=== PATIENT | male | born 1960 | race African-American/Black ===

== ENCOUNTER 2022-07-04 21:15 | Emergency (ER) | payer OTHER, SELFPAY ==
[2022-07-04 21:33] LABS: Glucose Point of Care 134 mg/dl (65-105)
[2022-07-04 21:38] VITALS: BP 152/109; PULSE 50; RESP 18; TEMP 36.4; O2SAT 97
[2022-07-04 22:07] LABS: Basophils Percent Auto 0.5 % (0.2-1.2); Eosinophils Absolute Auto 0.1 K/mm3 (0-0.3); Eosinophils Percent Auto 0.6 % (0-4.4); Hematocrit 24.2 % (42.0-52.0); Immature Granulocyte Absolute 0.02 K/mm3 (0.00-0.031); Immature Granulocyte Percent A 0.2 % (0-0.5); Lymphocytes Absolute Auto 3.68 K/mm3 (0.9-3.2); Lymphocytes Percent Auto 45.1 % (18.3-44.2); Mean Corpuscular HGB Conc 33.1 g/dl (32-36); Mean Corpuscular Hemoglobin 28.5 pg (26-34); Mean Corpuscular Volume 86.1 fl (80-100); Monocytes Absolute Auto 0.9 K/mm3 (0.1-0.6); Monocytes Percent Auto 11.3 % (2.6-8.5); Neutrophils Absolute Auto 3.5 K/mm3 (1.3-6.7); Neutrophils Percent Auto 42.3 % (45.5-73.1); Platelet Count Result 265 k/mm3 (150-375); Red Blood Count 2.81 M/mm3 (4.6-6.20); Red Cell Distribution Width 18.5 % (11.5-14.5); White Blood Count 8.2 K/mm3 (4.5-10.0)
[2022-07-04 22:21] LABS: Alanine Aminotransferase 20 U/L (6-50); Albumin Level 2.8 g/dL (3.5-5.1); Alkaline Phosphatase 467 U/L (38-126); Anion Gap 11 mmol/L (8-16); Aspartate Amino Transferase 51 U/L (17-59); Bilirubin,Total 1.6 mg/dL (0.2-1.3); Blood Urea Nitrogen 50 mg/dL (9-20); Calcium 7.5 mg/dL (8.4-10.2); Carbon Dioxide 15 mmol/L (22-30); Chloride 107 mmol/L (98-107); Estimated CRCL calculation 20 ml/min; Estimated Glomerular Filt Rate 28; Glucose 155 mg/dL (65-110); Potassium 5.7 mmol/L (3.4-5.0); Sodium 133 mmol/L (137-145)
--- NOTE | 2022-07-04 23:56 | ED.GENADULT ---
HPI - General Adult General Chief complaint: Unspecified Stated complaint: AMS/LOW BG/NARCOTIC OD Time Seen by Provider: 07/04/22 21:23 History of Present Illness HPI narrative: Patient 60-year-old gentleman who presents emergency department with chief complaint of altered mental status. Per the jail staff patient was less responsive EMS was called the patient was found to be unresponsive and they gave the patient Narcan which had no relief. The patient was found to be hypoglycemic and was given dextrose and the patient is returned to his baseline mental status. Patient has history of chronic renal insufficiency and history of diabetes which he takes insulin. Review of Systems Review of Systems: A 10 system review of systems was completed on the patient and is negative except for what is stated in the HPI. Nursing and ancillary documentation was reviewed. Exam Narrative: GENERAL: Well-appearing, well-nourished, and in no acute distress. HEAD: Normocephalic, atraumatic. EYES: PERRLA and EOMI. ENT: Nares clear, no rhinorrhea or epistaxis. Mucous membranes moist. NECK: Supple. CHEST: Clear to auscultation. No respiratory distress. HEART: Regular rate and rhythm. No murmur heard. Normal peripheral pulses. ABDOMEN: Soft, nontender, nondistended, normal active bowel sounds. EXTREMITIES: Normal range of motion. No edema. SKIN: Warm, dry, no rash. NEURO: No focal deficits. Alert and oriented x3. PSYCH: Normal mood and affect. Course Vital Signs Vital signs: Vital Signs Temperature 36.4 C 07/04/22 21:38 Pulse Rate 50 L 07/04/22 21:38 Respiratory Rate 18 07/04/22 21:38 Blood Pressure 152/109 H 07/04/22 21:38 Pulse Oximetry 97 07/04/22 21:38 Oxygen Delivery Room Air 07/04/22 21:38 Temperature 36.4 C 07/04/22 21:38 Pulse Rate 55 L 07/04/22 23:59 Respiratory Rate 16 07/04/22 23:59 Blood Pressure 139/95 H 07/04/22 23:59 Pulse Oximetry 94 07/04/22 23:59 Oxygen Delivery Room Air 07/04/22 21:38 Medical Decision Making Vital Signs Vital Signs: Vital Signs Temperature 36.4 C 07/04/22 21:38 Pulse Rate 50 L 07/04/22 21:38 Respiratory Rate 18 07/04/22 21:38 Blood Pressure 152/109 H 07/04/22 21:38 Pulse Oximetry 97 07/04/22 21:38 Oxygen Delivery Room Air 07/04/22 21:38 Temperature 36.4 C 07/04/22 21:38 Pulse Rate 55 L 07/04/22 23:59 Respiratory Rate 16 07/04/22 23:59 Blood Pressure 139/95 H 07/04/22 23:59 Pulse Oximetry 94 07/04/22 23:59 Oxygen Delivery Room Air 07/04/22 21:38 Lab Data Result diagrams: 07/04/22 22:02 07/04/22 22:02 Labs: Lab Results 07/04/22 07/04/22 07/04/22 Range/Units 21:27 22:02 22:02 WBC 8.2 (4.5-10.0) K/mm3 RBC 2.81 L (4.6-6.20) M/mm3 Hgb 8.0 L (14.0-18.0) g/dL Hct 24.2 L (42.0-52.0) % MCV 86.1 (80-100) fl MCH 28.5 (26-34) pg MCHC 33.1 (32-36) g/dl RDW 18.5 H (11.5-14.5) % Plt Count 265 (150-375) k/mm3 MPV 11.0 H (7.4-10.4) fl Immature Gran % (Auto) 0.2 (0-0.5) % Neut % (Auto) 42.3 L (45.5-73.1) % Lymph % (Auto) 45.1 H (18.3-44.2) % [place] % (Auto) 11.3 H (2.6-8.5) % Eos % (Auto) 0.6 (0-4.4) % Baso % (Auto) 0.5 (0.2-1.2) % Lymph # (Auto) 3.68 H (0.9-3.2) K/mm3 [place] # (Auto) 0.9 H (0.1-0.6) K/mm3 Eos # (Auto) 0.1 (0-0.3) K/mm3 Baso # (Auto) 0.0 (0.0-0.1) K/mm3 Abs Immat Gran (auto) 0.02 (0.00-0.031) K/mm3 Absolute Neuts (auto) 3.5 (1.3-6.7) K/mm3 Absolute Nucleated RBC 0.0 (0.0-0.012) K/mm3 Nucleated RBC % 0.0 (0.0-0.2) % Sodium 133 L (137-145) mmol/L Potassium 5.7 H (3.4-5.0) mmol/L Chloride 107 (98-107) mmol/L Carbon Dioxide 15 L (22-30) mmol/L Anion Gap 11 (8-16) mmol/L BUN 50 H (9-20) mg/dL Creatinine 2.40 H (0.7-1.3) mg/dL Estim Creat Clear Calc 20 ml/min Estimated GFR 28 L (59 - ) Glucose 155 H (65
--- NOTE | 2022-07-04 23:58 | PC.NURSE ---
pt given cup of apple juice. no swallow deficits noted. pt alert and oriented.
[2022-07-04 23:59] VITALS: BP 139/95; PULSE 55; RESP 16; O2SAT 94
[2022-07-05 00:06] LABS: Glucose Point of Care 95 mg/dl (65-105)
== END 2022-07-05 02:30 | disposition home or self-care (01) ==
PROVIDERS: Emergency Provider Emergency Medicine; PCP Internal Medicine
DX: E11.649 Type 2 diabetes mellitus with hypoglycemia without coma (principal); Z79.4 Long term (current) use of insulin; N18.9 Chronic kidney disease, unspecified
CPT/HCPCS: 36415; 80053; 82948; 85025; 99283

== ENCOUNTER 2022-07-08 18:09 | Inpatient (IN) | payer OTHER, SELFPAY ==
--- NOTE | ~2022-07-08 | CT_ITS ---
EXAMINATION: CT abdomen pelvis wo con DATE: 07/14/2022 14:39 INDICATION: biliary stents in place TECHNIQUE: Computed tomography (CT) of the abdomen and pelvis was performed without intravenous contr ast. Automated exposure control and iterative reconstruction technique were employed. The dose-length product was 299.13 mGy-cm. COMPARISON: None. FINDINGS: Exam limited by lack of contrast, motion artifact, paucity of intra-abdominal fat, and moderate ascit es. Lower thorax: Cardiomegaly. Heavy coronary artery calcification. Bibasilar consolidative opacities wi th volume loss. Moderate bilateral pleural fluid collections. Liver: A percutaneous biliary drain traverses the anterior abdomen, left lobe and terminates in the s econd portion of the duodenum. Pneumobilia. Intrahepatic duct dilation. Periportal edema. Biliary/Gallbladder: Likely gallbladder wall edema. Mild gallbladder distention. No bile duct dilatio n. Pancreas: Multiple coarse calcifications as can be seen with chronic pancreatitis. Multiple low-densi ty areas may reflect duct dilation, necrosis, pseudocysts or other cystic masses. Spleen: Multiple granulomas calcifications. Adrenals:No mass. Kidneys: No suspicious mass. Punctate nonobstructing right upper pole calculus. No severe hydronephro sis. GI tract: No small or large bowel dilation. Appendix not confidently visualized. Mesentery/Peritoneum: Moderate ascites. Retroperitoneum: No mass. Atherosclerotic abdominal aortic and/or arterial calcifications. Pelvis: The bladder is decompressed by a Cline catheter. Soft Tissues: Diffuse subcutaneous edema. Bones: No acute osseous finding. IMPRESSION: Limited examination, as detailed above. Moderate bilateral pleural effusions with adjacent atelectasi s, pulmonary infection is not excluded. Percutaneous biliary drain in good position. Pancreatic duct dilation versus pseudocysts or other cystic lesions, poorly evaluated, in a background of chronic patton creatitis. Periportal and gallbladder wall edema. Anasarca. Reviewed, dictated and finalized at location K. CAPPER IMPRESSION: Limited examination, as detailed above. Moderate bilateral pleural effusions wi th adjacent atelectasis, pulmonary infection is not excluded. Percutaneous bili jessy drain in good position. Pancreatic duct dilation versus pseudocysts or othe r cystic lesions, poorly evaluated, in a background of chronic pancreatitis. Pe riportal and gallbladder wall edema. Anasarca.
--- NOTE | ~2022-07-08 | US_ITS ---
EXAMINATION: US renal BI DATE: 07/11/2022 21:51 INDICATION: DAVID and CKD TECHNIQUE: Multiple grayscale and Doppler ultrasound images of the kidneys were obtained. COMPARISON: None. FINDINGS: The right kidney measures 9.0 x 4.1 x 5.2 cm. The left kidney measures 8.5 x 4.3 x 5.2 cm. The kidney s demonstrate increased parenchymal echogenicity. There is no hydronephrosis. The bladder is thick-wa lled and trabeculated, probably due to outlet compromise. IMPRESSION: Medical renal disease. Reviewed, dictated and finalized at location K. ACE PUNCHER IMPRESSION: Medical renal disease.
[2022-07-08 18:23] LABS: Glucose Point of Care 146 mg/dl (65-105)
--- NOTE | 2022-07-08 18:56 | ED.RECABL ---
HPI - Recheck/Abnormal Lab/Rx General Chief Complaint: Recheck/Abnormal Lab/Rx Stated Complaint: hypoglycemic Time Seen by Provider: 07/08/22 18:39 History of Present Illness HPI narrative: 62-year-old male history of diabetes and dementia presents to the emergency room via EMS from assisted living facility for altered mental status. Patient was found to be hypoglycemic at the scene with a blood sugar of 24 and was given 100 mL of D10 IV. According to EMS, patient had a hypoglycemic episode earlier today, where staff gave him oral glucagon. Presently, patient is alert and oriented x3. Patient admits that he has had a decreased appetite last couple of days, and staff has been giving him his regular doses of insulin despite him eating. Patient denies headache, nausea vomiting, abdominal pain, diarrhea constipation, fevers, body aches. Family is at bedside. Related Data Allergies Allergy/AdvReac Type Severity Reaction Status Date / Time No Known Allergies Allergy Verified 07/08/22 20:32 Review of Systems Review of Systems: CONSTITUTIONAL: Denies fever, chills, or sweats. EYES: Denies visual changes, redness, or discharge. ENT: Denies rhinorrhea, congestion, sore throat, or otalgia. CARDIOVASCULAR: Denies chest pain, palpitations, or edema. RESPIRATORY: Denies cough or dyspnea. GASTROINTESTINAL: Denies abdominal pain, nausea, vomiting, or diarrhea. GENITOURINARY: Denies dysuria or hematuria. SKIN: Denies rash or itching. MUSCULOSKELETAL: Denies back pain, joint pain, or myalgia. NEUROLOGIC: Denies headache, numbness, dizziness, or weakness. PSYCHIATRIC: Denies anxiety or depression. Exam Narrative: GENERAL: Cachectic, and in no acute distress. HEAD: Normocephalic, atraumatic. EYES: Conjunctivae normal, PERRLA and EOMI. CHEST: Clear to auscultation. No respiratory distress. No wheezes rales or rhonchi. HEART: Regular rate and rhythm. No murmur heard. Normal peripheral pulses. ABDOMEN: Soft, nontender, nondistended, biliary drain present SKIN: Warm, dry, no rash. No noted wounds NEURO: No focal deficits. Alert and oriented x3. MAEW. CN's II-XI intact bilaterally PSYCH: Cooperative. Normal mood and affect. MDM - Recheck/Abnormal Lab/Rx Lab Data Labs: Lab Results 07/08/22 Range/Units 18:12 POC Capillary Glucose 146 H (65-105) mg/dl
[2022-07-08 19:04] LABS: Basophils Percent Auto 0.4 % (0.2-1.2); Eosinophils Percent Auto 0.2 % (0-4.4); Hematocrit 23.5 % (42.0-52.0); Immature Granulocyte Absolute 0.05 K/mm3 (0.00-0.031); Immature Granulocyte Percent A 0.6 % (0-0.5); Lymphocytes Absolute Auto 1.66 K/mm3 (0.9-3.2); Lymphocytes Percent Auto 19.4 % (18.3-44.2); Mean Corpuscular Hemoglobin 27.9 pg (26-34); Mean Corpuscular Volume 81.9 fl (80-100); Mean Platelet Volume 10.6 fl (7.4-10.4); Monocytes Absolute Auto 0.6 K/mm3 (0.1-0.6); Monocytes Percent Auto 7.2 % (2.6-8.5); Neutrophils Absolute Auto 6.2 K/mm3 (1.3-6.7); Neutrophils Percent Auto 72.2 % (45.5-73.1); Platelet Count Result 183 k/mm3 (150-375); Red Blood Count 2.87 M/mm3 (4.6-6.20); Red Cell Distribution Width 18.2 % (11.5-14.5); White Blood Count 8.6 K/mm3 (4.5-10.0)
--- NOTE | 2022-07-08 19:06 | PC.NURSE ---
Patient given frozen meal from freezer, (spaghetti, green beans, and a roll). Patient also given jayson crackers, peanut butter, and orange juice.
[2022-07-08 19:15] LABS: Acanthocytes 1+ (NORMAL); Anisocytosis 1+ (NORMAL); Platelet Estimate Adequate (Adequate); Poikilocytosis 1+ (NORMAL); Target Cells 1+ (NORMAL)
[2022-07-08 19:16] LABS: Schistocytes None Seen (NORMAL)
[2022-07-08 19:25] LABS: Anion Gap 8 mmol/L (8-16); Blood Urea Nitrogen 66 mg/dL (9-20); Calcium 7.2 mg/dL (8.4-10.2); Carbon Dioxide 16 mmol/L (22-30); Chloride 110 mmol/L (98-107); Estimated CRCL calculation 17 ml/min; Estimated Glomerular Filt Rate 29; Glucose 85 mg/dL (65-110); Sodium 134 mmol/L (137-145)
[2022-07-08 19:59] VITALS: BP 112/76; PULSE 54; RESP 17; O2SAT 99
[2022-07-08] MEDS: SODIUM CHLORIDE 0.9% IV 1,000 ML 125 ML IV CONT (20:00)
[2022-07-08] MEDS: SODIUM CHLORIDE 0.9% IV 1,000 ML 999 ML IV CONT (20:00)
--- NOTE | 2022-07-08 20:00 | PC.NURSE ---
Pt attempting to provide urine sample at this time
[2022-07-08 20:01] VITALS: BP 128/79; PULSE 52; RESP 16; O2SAT 98
--- NOTE | 2022-07-08 20:01 | ECG_ITS ---
Measurements Intervals [place] Rate: 55 P: RI: 0 QRS: 34 QRSD: 146 T: -9 QT: 558 QTc: 537 Interpretive Statements PROBABLY SINUS BRADYCARDIA (SIGNIFICANT BASELINE ARTIFACT) INTRAVENTRICULAR CONDUCTION DELAY ANTEROSEPTAL INFARCT, AGE INDETERMINATE BASELINE ARTIFACT- I, II, III, AVR, AVL, AVF, V1-V6 ABNORMAL ECG NO PREVIOUS ECG AVAILABLE FOR COMPARISON Electronically Signed On 07-09-2022 6:44:50 MEDICAL RESEARCHER by Dillon Rajput D.O.
--- NOTE | 2022-07-08 20:12 | PM.IMHP ---
H&P: HPI History of Present Illness Date/Time: 07/08/22 20:12 Chief Complaint: Hypoglycemia, weakness Narrative: Patient is a 62-year-old male past medical history biliary drain, insulin-dependent type 2 diabetes, BPH, hyperlipidemia, vitamin-D deficiency, B12 deficiency, history of viral hepatitis, CKD stage 3/4 presents the ED with complaints hypoglycemic episode at [facility]. Patient recently was seen here on 07/04/2022 with hypoglycemic episode and sent home. He states his glargine should be 4 units, however I verified his regimen with [facility] records as insulin regimen for diabetes is glargine 10 units daily, Humalog 3 units t.i.d. a.c. He states he gets hypoglycemia after getting glargine and Humalog together. Otherwise he has got some pancreatic biliary issues with surgery done at [facility], patient is a poor historian. He currently has a biliary drain, and states he had a cholecystostomy drain which had been removed. He has follow-up with [facility]. Patient is a very poor historian, his timeline is very skewed. It appears that he lives in assisted living and currently [facility]. Follows Dr. María Chinchilla. Patient has very poor p.o. intake, significant weight loss with severe protein calorie malnutrition. In ED: EMS found patient have blood sugar 24 and patient was given 100 mils of D10 IV. This is 2nd episode of hypoglycemia today, earlier in the day patient had been given oral glucagon. Patient is found to have hyperkalemia potassium 6.0, creatinine elevated 2.7, glucose 76, fluid and COVID negative. Patient to be admitted for observation for hypoglycemia Review of Systems Review of Systems: Constitutional: No Fever, No Chills, No Night Sweats, No Fatigue, No Malaise. Endorses generalized weakness, anorexia ENT/Mouth: No Hearing Changes, No Ear Pain, No Nasal Congestion, No Sinus Pain, No Hoarseness, No sore throat, No Rhinorrhea, No Swallowing Difficulty Eyes: No Eye Pain, No Redness, No Vision Changes Cardiovascular: No Chest Pain, No Palpitations, No Dyspnea on Exertion, No Orthopnea, No Claudication, No Edema Respiratory: No Cough, No Sputum, No Wheezing, No Shortness of Breath Gastrointestinal: No Nausea, No Vomiting, No Diarrhea, No Constipation, No Abdominal Pain, No Heartburn, No Hematochezia, No Melena Genitourinary: No Dysuria, No Urinary Frequency, No Hematuria, No Urinary Incontinence, No Urgency Musculoskeletal: No Arthralgias, No Myalgias, No Joint Swelling, No Joint Stiffness, No Back Pain Skin: No Skin Lesions, No Pruritis, No Hair Changes Neuro: No Weakness, No Numbness, No Paresthesias, No Loss of Consciousness, No Syncope, No Dizziness, No Headache Psych: No Anxiety/Panic, No Depression, No Insomnia Heme: No Bruising, No Bleeding Lymph: No Adenopathy Endocrine: No Polyuria, No Polydipsia, No Temperature Intolerance [facility] Past Medical History Medical History (Updated 07/08/22 @ 21:08 by Randy Mcqueen DO) B12 deficiency BPH (benign prostatic hyperplasia) CKD stage 4 due to type 2 diabetes mellitus GERD (gastroesophageal reflux disease) Hyperlipidemia Insulin dependent type 2 diabetes mellitus Viral hepatitis Vitamin D deficiency Surgical History Surgical History (Updated 07/08/22 @ 21:08 by Randy Mcqueen DO) History of common bile duct surgery Family History Family History (Updated 07/08/22 @ 21:09 by Randy Mqcueen DO) Mother Heart failure Social History Social History (Updated 07/08/22 @ 21:09 by Randy Mcqueen DO) Social History: Lives in assisted living and now [facility], previously was working over a year ago. Smoking status: Never smoker Alcohol intake: never Substance use: never Meds Home Medications and Allergies Allergies Allergy/AdvReac Type Severity Reaction Status Date / Time No Known Allergies Allergy Verified 07/08/22 20:32 Vital Signs BP 141/99, respirations 20, O2 saturation 98 Ex
[2022-07-08 20:15] LABS: Magnesium 1.6 mg/dL (1.6-2.3)
[2022-07-08 20:16] VITALS: BP 128/82; PULSE 55; RESP 18; O2SAT 99
[2022-07-08 20:29] LABS: Troponin I < 0.012 ng/mL (0.000-0.034)
[2022-07-08 20:32] VITALS: BP 141/99; RESP 20; O2SAT 98
[2022-07-08 20:41] LABS: Influenza A QL RT-PCR Negative (Negative); Influenza B QL RT-PCR Negative (Negative); SARS-CoV-2 RNA PCR Negative
[2022-07-08 20:48] LABS: Glucose Point of Care 76 mg/dl (65-105)
[2022-07-08 20:55] VITALS: BMI 14.8
[2022-07-08 22:00] VITALS: BP 108/74; PULSE 58; RESP 16; TEMP 32.3; O2SAT 100
[2022-07-08] MEDS: CALCIUM GLUC 1,000 MG/NS 50 ML 1,000 MG/50 ML BAG 100 MG IVPB (22:15)
[2022-07-08] MEDS: SODIUM ZIRCONIUM CYCLOSILICATE 10 GM POWD.PACK PO (22:15)
--- NOTE | 2022-07-08 22:16 | ADMGEN ---
This patient, Pat Price, was admitted to [facility] Surg Room 306-01. Patient/family oriented to hospital policies and general routines including ID bracelet, bed and alarms, visiting hours, pain management, procedures, bathroom and other care routines, personal items, smoking policy, room service/diet, and visiting hours. Information on how to activate the Rapid Response Team has been discussed. Patient/Family are encouraged to report perceived risks to care and to ask questions if they do not understand what they are told or what they should do.
[2022-07-08 23:47] LABS: Glucose Point of Care 129 mg/dl (65-105)
[2022-07-09] VITALS (32 sets, daily range): BP systolic 103–143; BP diastolic 59–94; PULSE 60–87; RESP 14–20; TEMP 32.3–36.6; O2SAT 98–100; BMI 14.8
[2022-07-09 00:41] LABS: Anion Gap 6 mmol/L (8-16); Blood Urea Nitrogen 67 mg/dL (9-20); Calcium 7.2 mg/dL (8.4-10.2); Carbon Dioxide 16 mmol/L (22-30); Chloride 112 mmol/L (98-107); Estimated CRCL calculation 19 ml/min; Estimated Glomerular Filt Rate 30; Glucose 115 mg/dL (65-110); Potassium 6.1 mmol/L (3.4-5.0); Sodium 134 mmol/L (137-145)
[2022-07-09 00:42] LABS: Glucose Point of Care 134 mg/dl (65-105)
[2022-07-09 01:01] LABS: Appearance Urine Clear (Clear); Bilirubin Urine Negative (Negative); Blood Urine Negative (Negative); Color Urine Yellow (Yellow); Glucose Urine UA Trace mg/dL (Negative); Ketones Urine Negative (Negative); Leukocyte Esterase Ur Negative LEU/UL (Negative); Nitrate Urine Negative (Negative); Protein Urine 1+ mg/dL (Negative); Specific Grav Ur 1.015 (1.001-1.035); Urobilinogen Urine 0.2 mg/dL (<2.0)
[2022-07-09 01:03] LABS: Hemoglobin A1C 7.1 % (<5.7)
[2022-07-09 01:06] LABS: RBC Urine 0-2 /hpf (0-2); Squamous Epithelial Cell Urine Rare /hpf (Few)
[2022-07-09 01:07] LABS: Add Urine Microscopic? YES
--- NOTE | 2022-07-09 01:28 | PC.NURSE ---
This patient, Pat Price, was received from [[id number] ] on 07/09/22 at 0022. Patient/family oriented to unit policies and routines
--- NOTE | 2022-07-09 01:31 | PC.NURSE ---
unable to take rectal temp on pt. due to pt refuses due to hemorrids. Doctor aware. Taking axillary temps
[2022-07-09] MEDS: SODIUM ZIRCONIUM CYCLOSILICATE 10 GM POWD.PACK PO (01:48)
[2022-07-09 04:35] LABS: Glucose Point of Care 95 mg/dl (65-105)
[2022-07-09] MEDS: SODIUM CHLORIDE 0.9% IV 1,000 ML 125 ML IV CONT (04:38)
[2022-07-09 06:15] LABS: Anion Gap 7 mmol/L (8-16); Blood Urea Nitrogen 66 mg/dL (9-20); Calcium 6.8 mg/dL (8.4-10.2); Carbon Dioxide 14 mmol/L (22-30); Chloride 113 mmol/L (98-107); Estimated CRCL calculation 19 ml/min; Estimated Glomerular Filt Rate 30; Glucose 67 mg/dL (65-110); Potassium 5.5 mmol/L (3.4-5.0); Sodium 134 mmol/L (137-145)
[2022-07-09 06:21] LABS: Mean Corpuscular HGB Conc 35.1 g/dl (32-36); Mean Corpuscular Hemoglobin 27.6 pg (26-34); Mean Corpuscular Volume 78.6 fl (80-100); Mean Platelet Volume 11.1 fl (7.4-10.4); Platelet Count Result 166 k/mm3 (150-375); Red Blood Count 2.43 M/mm3 (4.6-6.20); Red Cell Distribution Width 17.9 % (11.5-14.5); White Blood Count 6.2 K/mm3 (4.5-10.0)
[2022-07-09 06:28] LABS: Hematocrit 19.1 % (42.0-52.0); Hemoglobin 6.7 g/dL (14.0-18.0)
[2022-07-09 07:19] LABS: Glucose Point of Care 98 mg/dl (65-105)
[2022-07-09 07:55] LABS: Glucose Point of Care 76 mg/dl (65-105)
[2022-07-09 08:10] LABS: Procalcitonin 26.1 ng/mL
[2022-07-09] MEDS: LIPASE/AMYLASE/PROTEASE 12,000 UNITS CAP 2 CAP PO ×3 (08:58→17:11)
[2022-07-09] MEDS: carvediloL 12.5 MG TABLET PO ×2 (08:58→21:18)
[2022-07-09] MEDS: PANTOPRAZOLE 40 MG TABLET PO (08:58)
[2022-07-09] MEDS: ASPIRIN 81 MG ENTERIC TABLET PO (08:58)
[2022-07-09] MEDS: FERROUS SULFATE 324 MG TABLET PO (08:58)
[2022-07-09] MEDS: TAMSULOSIN HCL 0.4 MG CAPSULE PO (08:58)
[2022-07-09] MEDS: SODIUM BICARBONATE TAB 650 MG TABLET PO ×3 (08:59→17:11)
[2022-07-09] MEDS: CALCIUM CARBONATE (TUMS) 500 MG (200 MG ELEMENTAL) PO ×2 (08:59→17:11)
[2022-07-09] MEDS: ATORVASTATIN 40 MG TABLET PO (08:59)
[2022-07-09] MEDS: ACETAMINOPHEN 325 MG TABLET 650 MG PO ×3 (09:04→21:16)
--- NOTE | 2022-07-09 09:40 | PM.IMPN ---
Progress Note: A&P Assessment and Plan (1) Hypoglycemia due to insulin: Code(s): E16.0 - Drug-induced hypoglycemia without coma; T38.3X5A - Adverse effect of insulin and oral hypoglycemic [antidiabetic] drugs, initial encounter Status: Acute Assessment and Plan: -holding home insulin regimen NovoLog 3 units t.i.d. a.c., glargine 10 units daily -will have low-dose sliding scale insulin, Accu-Cheks a.c. HS, hypoglycemia protocol, checking hemoglobin A1c (2) Hyperkalemia: Code(s): E87.5 - Hyperkalemia Status: Acute Assessment and Plan: likely from poor fluid intake and renal failure -continue IV fluids -potassium trending down, no EKG changes, asymptomatic -continue monitor on telemetry (3) Acute kidney injury superimposed on CKD: Code(s): N17.9 - Acute kidney failure, unspecified; N18.9 - Chronic kidney disease, unspecified Status: Acute Assessment and Plan: likely from poor fluid intake and renal failure -continue IV fluids. Monitor BMP (4) Acute anemia: Code(s): D64.9 - Anemia, unspecified Status: Acute Assessment and Plan: Acute drop in hemoglobin. Patient does not report any bleeding per rectum. Will check stool Hemoccult. 1 unit PRBC transfusion ordered. Monitor CBC Subjective Date/time seen: 07/09/22 09:40 Patient has no complaints this morning. No bleeding per rectum no abdominal pain Review of Systems Review of Systems: Constitutional: No Fever, No Chills, No Night Sweats, No Fatigue, No Malaise. Endorses generalized weakness, anorexia ENT/Mouth: No Hearing Changes, No Ear Pain, No Nasal Congestion, No Sinus Pain, No Hoarseness, No sore throat, No Rhinorrhea, No Swallowing Difficulty Eyes: No Eye Pain, No Redness, No Vision Changes Cardiovascular: No Chest Pain, No Palpitations, No Dyspnea on Exertion, No Orthopnea, No Claudication, No Edema Respiratory: No Cough, No Sputum, No Wheezing, No Shortness of Breath Gastrointestinal: No Nausea, No Vomiting, No Diarrhea, No Constipation, No Abdominal Pain, No Heartburn, No Hematochezia, No Melena Genitourinary: No Dysuria, No Urinary Frequency, No Hematuria, No Urinary Incontinence, No Urgency Musculoskeletal: No Arthralgias, No Myalgias, No Joint Swelling, No Joint Stiffness, No Back Pain Skin: No Skin Lesions, No Pruritis, No Hair Changes Neuro: No Weakness, No Numbness, No Paresthesias, No Loss of Consciousness, No Syncope, No Dizziness, No Headache Psych: No Anxiety/Panic, No Depression, No Insomnia Heme: No Bruising, No Bleeding Lymph: No Adenopathy Endocrine: No Polyuria, No Polydipsia, No Temperature Intolerance Exam Narrative: - GENERAL: Present frail cachectic male in no acute distress - EYES: EOMI. Anicteric. - HENT: Moist mucous membranes. Poor dentition. [place] wasting - LUNGS: Clear to auscultation bilaterally, no wheezing, rhonchi, or rales. - CARDIOVASCULAR: Regular rate and rhythm. No murmur. - ABDOMEN: Soft, non-tender and non-distended. No palpable masses. - EXTREMITIES: thin extremities. Peripheral pulses 2+. Non-tender. - NEUROLOGIC: No focal neurological deficits. CN II-XII grossly intact. - PSYCHIATRIC: Awake, Alert and oriented. Slightly confused. Appropriate mood and flat affect. - SKIN: No rashes or lesions. Warm. - LYMPH: No cervical lymphadenopathy. Objective Data Vital Signs Vital Signs: Vital Signs - 24 hr 07/08/22 19:59 07/08/22 20:01 07/08/22 20:16 Temperature Pulse Rate 54 L 52 L 55 L Respiratory Rate 17 16 18 Blood Pressure 112/76 128/79 128/82 Pulse Oximetry 99 98 99 Oxygen Delivery 07/08/22 20:32 07/08/22 22:00 07/09/22 00:52 Temperature 90.1 F L 91.5 F L Pulse Rate 58 L 65 Respiratory Rate 20 16 16 Blood Pressure 141/99 H 108/74 118/74 Pulse Oximetry 98 100 100 Oxygen Delivery 07/09/22 00:00 07/09/22 00:00 07/09/22 00:30 Temperature 90.1 F L Pulse Rate 60 Respiratory Rate Blood Pressure Pulse Oximetry
[2022-07-09] MEDS: FLUTICASONE/SALMETEROL 115-21 MCG INHALER 1 PUFF 2 PUFF INHALATION ×2 (09:54→20:43)
[2022-07-09] MEDS: SODIUM CHLORIDE 0.9% IV 250 ML 30 ML IV CONT (10:21)
[2022-07-09] MEDS: TUBING, BLOOD PLUM PUMP TUBING 1 EACH XX (10:21)
[2022-07-09 11:26] LABS: Glucose Point of Care 158 mg/dl (65-105)
[2022-07-09 12:12] LABS: IFOB Positive Control Positive; Immunochemical Fecal Occult Bl Negative (N)
[2022-07-09 15:01] LABS: Hematocrit 27.2 % (42.0-52.0); Hemoglobin 9.2 g/dL (14.0-18.0)
--- NOTE | 2022-07-09 15:20 | PCOTNOTE ---
Addendum entered by Anna Murguia OT 07/09/22 16:00: Spoke with hospitalist who approved of removing bedrest orders. RN aware. Original Note: Called Dr. Sheehan regarding bedrest orders who approves change from bed rest to activity.
--- NOTE | 2022-07-09 15:26 | PCOTNOTE ---
Addendum entered by Anna Murguia OT 07/09/22 15:44: Patient woke again while therapist still at door and wanted to engage and try going to the bathroom. Original Note: Upon arrival for OT evaluation patient was asleep. Patient woke however verbalizes level 7 pain and exhaustion and refuses evaluation at this time. Patient went back to sleep.
[2022-07-09 16:34] LABS: Glucose Point of Care 284 mg/dl (65-105)
[2022-07-09] MEDS: INSULIN ASPART (*BKC) 100 UNITS/ML SUB-Q (17:05)
[2022-07-09] MEDS: SODIUM CHLORIDE 0.9% IV 1,000 ML 100 ML IV CONT (19:06)
[2022-07-09 19:49] LABS: Glucose Point of Care 141 mg/dl (65-105)
--- NOTE | 2022-07-09 21:46 | PC.NURSE ---
This patient, Pat Price, was transferred to [facility] on 07/09/22 at 2140. Personal belongings sent with patient. Report given to SOHA Rojas. Appropriate documentation sent with patient.
[2022-07-09 22:06] LABS: Glucose Point of Care 81 mg/dl (65-105)
[2022-07-10] VITALS (11 sets, daily range): BP systolic 131–140; BP diastolic 77–87; PULSE 65–77; RESP 16–18; TEMP 35.9–36.4; O2SAT 99–100
[2022-07-10] MEDS: SODIUM CHLORIDE 0.9% IV 1,000 ML 100 ML IV CONT ×3 (01:41→21:22)
[2022-07-10] MEDS: ACETAMINOPHEN 325 MG TABLET 650 MG PO ×4 (03:14→21:19)
[2022-07-10 05:48] LABS: Free T4 Free Thyroxine Reflex 2.39 ng/dL (0.78-2.19)
[2022-07-10 05:50] LABS: Basophils Percent Auto 0.5 % (0.2-1.2); Eosinophils Absolute Auto 0.1 K/mm3 (0-0.3); Eosinophils Percent Auto 0.8 % (0-4.4); Hematocrit 24.3 % (42.0-52.0); Hemoglobin 8.4 g/dL (14.0-18.0); Immature Granulocyte Absolute 0.03 K/mm3 (0.00-0.031); Immature Granulocyte Percent A 0.4 % (0-0.5); Lymphocytes Absolute Auto 1.53 K/mm3 (0.9-3.2); Lymphocytes Percent Auto 19.6 % (18.3-44.2); Mean Corpuscular HGB Conc 34.6 g/dl (32-36); Mean Corpuscular Hemoglobin 28.8 pg (26-34); Mean Corpuscular Volume 83.2 fl (80-100); Monocytes Absolute Auto 0.7 K/mm3 (0.1-0.6); Monocytes Percent Auto 8.5 % (2.6-8.5); Neutrophils Absolute Auto 5.5 K/mm3 (1.3-6.7); Neutrophils Percent Auto 70.2 % (45.5-73.1); Platelet Count Result 145 k/mm3 (150-375); Red Blood Count 2.92 M/mm3 (4.6-6.20); Red Cell Distribution Width 17.8 % (11.5-14.5); White Blood Count 7.8 K/mm3 (4.5-10.0)
[2022-07-10 05:59] LABS: Alanine Aminotransferase 34 U/L (6-50); Albumin Level 2.1 g/dL (3.5-5.1); Alkaline Phosphatase 836 U/L (38-126); Anion Gap 8 mmol/L (8-16); Aspartate Amino Transferase 88 U/L (17-59); Bilirubin,Total 1.6 mg/dL (0.2-1.3); Blood Urea Nitrogen 60 mg/dL (9-20); Calcium 6.2 mg/dL (8.4-10.2); Carbon Dioxide 14 mmol/L (22-30); Chloride 117 mmol/L (98-107); Estimated CRCL calculation 20 ml/min; Estimated Glomerular Filt Rate 33; Glucose 60 mg/dL (65-110); Magnesium 1.5 mg/dL (1.6-2.3); Sodium 139 mmol/L (137-145)
[2022-07-10 06:10] LABS: Glucose Point of Care 102 mg/dl (65-105)
[2022-07-10] MEDS: MAGNESIUM SULF 1 GM/D5W 100 ML 1 GM/100 ML BAG IVPB (08:02)
[2022-07-10] MEDS: FERROUS SULFATE 324 MG TABLET PO (08:03)
[2022-07-10] MEDS: SODIUM BICARBONATE TAB 650 MG TABLET PO ×3 (08:03→17:23)
[2022-07-10] MEDS: ASPIRIN 81 MG ENTERIC TABLET PO (08:03)
[2022-07-10] MEDS: PANTOPRAZOLE 40 MG TABLET PO (08:03)
[2022-07-10] MEDS: TAMSULOSIN HCL 0.4 MG CAPSULE PO (08:03)
[2022-07-10] MEDS: CALCIUM CARBONATE (TUMS) 500 MG (200 MG ELEMENTAL) PO ×2 (08:04→17:26)
[2022-07-10] MEDS: LIPASE/AMYLASE/PROTEASE 12,000 UNITS CAP 2 CAP PO ×3 (08:04→17:23)
[2022-07-10] MEDS: ATORVASTATIN 40 MG TABLET PO (08:04)
[2022-07-10] MEDS: carvediloL 12.5 MG TABLET PO ×2 (08:04→21:19)
[2022-07-10 08:45] LABS: Glucose Point of Care 81 mg/dl (65-105)
[2022-07-10] MEDS: FLUTICASONE/SALMETEROL 115-21 MCG INHALER 1 PUFF 2 PUFF INHALATION ×2 (10:00→21:19)
--- NOTE | 2022-07-10 10:41 | PCOTNOTE ---
Patient sleeping, requested therapist try later to see for OT. I didn't get any rest all day yesterday, I'm trying to get some rest today. Will continue OT per plan of care.
[2022-07-10 12:15] LABS: Glucose Point of Care 237 mg/dl (65-105)
--- NOTE | 2022-07-10 12:28 | PM.CNNEP ---
Assessment and Plan Assessment and plan (1) Renal insufficiency: Code(s): N28.9 - Disorder of kidney and ureter, unspecified Status: Acute Assessment and Plan: acute versus chronic versus acute on chronic?? suspect he has some baseline CKD given his history creatinine noted to be 2.4mg/dl on ER visit on 07/04/22 nursing records only note acute kidney injury on list of problems check renal ultrasound assess for proteinuria attempt to get records from [facility] or [facility] follow repeat labs and UOP (2) Hyperkalemia: Code(s): E87.5 - Hyperkalemia Status: Acute Assessment and Plan: possibly due to DAVID however, given history of diabetes, could have a component of Type 4 RTA K+ normalized following medical management follow trend of repeat K+ (3) Hypoglycemia: Code(s): E16.2 - Hypoglycemia, unspecified Status: Acute Assessment and Plan: suspect due to a combination of poor oral intake and use of insulin blood sugars seem better now follow accuchecks (4) Acute anemia: Code(s): D64.9 - Anemia, unspecified Status: Acute Assessment and Plan: etiology unclear s/p PRBC transfusion due to CKD?? may need/benefit from Epogen follow H/H (5) Insulin dependent type 2 diabetes mellitus: Code(s): E11.9 - Type 2 diabetes mellitus without complications; Z79.4 - extermination inspector (current) use of insulin Status: Acute Assessment and Plan: follow accuchecks glycemic control Will continue to follow. History of Present Illness Reason for Consult Consult date: 07/10/22 Reason for consult: chronic renal failure Chief Complaint Chief complaint: weakness History of Present Illness Narrative: Most of the information I have obtained is from review of the electronic medical record as well as the paper chart as is difficult to get a full and complete history from the patient as he is a poor historian. The patient is a 62-year-old male with a past medical history as outlined below who presented to [facility] Emergency room due to hypoglycemia. Apparently, the patient has had poor oral intake in association with weight loss for some time now. He was apparently recently hospitalized at [facility] / [facility] (? ) For some type of biliary/pancreatic issue and apparently this required placement of a biliary drain (The patient cannot tell me much specifics on this.) In any case, he has been having on and off issues with hypoglycemia at the nursing facility and was actually here on 07/04/2022 with an episode of hypoglycemia as well but was eventually discharged back to his nursing facility. Apparently he had another episode of hypoglycemia on the day of admission and EMS was called for further evaluation. He apparently had a blood sugar of 24 and was given D10 IV to correct this issue and this apparently was his 2nd episode of hypoglycemia that day which led to his subsequent transferred to the ER for assessment. Workup and evaluation emergency room demonstrated the patient to be hemodynamically stable but routine blood test demonstrated hyperkalemia with a potassium of 6.0, elevated BUN and creatinine but a stable blood sugar. He was found to be COVID negative as well. Given these recurrent episodes of hypoglycemia given with his complex medical history as well as his laboratory abnormalities, he was admitted to the hospital for further evaluation and therapy. Since his admission, his blood sugars appear to have stabilized and his hyperkalemia responded to medical management. He did require a packed red blood cell transfusion yesterday after his a.m. labs show significant anemia. Renal consultation was requested due to his elevated BUN and creatinine. Unfortunately, I am not exactly clear if the patient has chronic kidney disease at baseline but the fact that he is currently on sodium bicarbonate at his nursing
--- NOTE | 2022-07-10 13:03 | PM.IMPN ---
Progress Note: A&P Assessment and Plan (1) Hypoglycemia due to insulin: Code(s): E16.0 - Drug-induced hypoglycemia without coma; T38.3X5A - Adverse effect of insulin and oral hypoglycemic [antidiabetic] drugs, initial encounter Status: Acute Assessment and Plan: Patient with glucose down to 25. Home insulin regimen of NovoLog 3 units t.i.d. a.c. and glargine 10 units daily on hold. A1c 7.1. Anemia may be skewing his A1c. Continue sliding scale. Glucose was 60 this morning but better now. Follow (2) Hyperkalemia: Code(s): E87.5 - Hyperkalemia Status: Acute Assessment and Plan: Potassium up to 6.1 felt related to DAVID/CKD. Potassium better today at 5.0. Continue IV fluids. Continue to monitor on telemetry. (3) Acute kidney injury superimposed on CKD: Code(s): N17.9 - Acute kidney failure, unspecified; N18.9 - Chronic kidney disease, unspecified Status: Acute Assessment and Plan: Cr 2.7 with BUN 66 on admission. Levels climbed but are now improving. Unclear on baseline renal function but Cr 2.4 a few days prior to thie admission. Likely from poor fluid intake. He has persistent metabolic nongap acidosis. This must be chronic since he is on oral bicarb on admission. BUN better at 60 and Cr down to 2.4. Nephrology consult. Contineu IV fluids. (4) Acute anemia: Code(s): D64.9 - Anemia, unspecified Status: Acute Assessment and Plan: Hgb 8.0 on admission but dropped to 6.7. No evidence of acute blood loss and stool guaiac negative. No evidence of hemolysis. Could be related to IV fluids. He received 1 unit PRBC and Hgb climbed to 9.2. Monitor CBC Plan Biliary drain - secured and draining well. Bili okay but AP 836. Followed at [facility] Date/time seen: 07/10/22 13:03 Interval history: 62yo male with CKD, DM and dementia here for hypoglycemia. Assuming care. Chart reviewed. Patient feels better. Back pain is improved. He did have increasing back pain last night however. He feels ready for discharge this morning. Exam Narrative: AF 96.8 126/72 65 18 99% ra Gen - NARD Chest - CTA bilaterally, nml RR CV - RRR S1/S2 Abd - soft, diffusely tender. RUQ drain in place with clear yellow fluid in bag. LUQ drain in place and capped. Ext - No pedal edema Psych - Nml mood and affect Skin - Warm and dry Objective Data Vital Signs Vital Signs: Vital Signs - 24 hr 07/09/22 14:00 07/09/22 15:17 07/09/22 15:25 Temperature 96.8 F L Pulse Rate 79 Respiratory Rate Blood Pressure Pulse Oximetry Oxygen Delivery Room Air 07/09/22 15:44 07/09/22 16:13 07/09/22 16:00 Temperature 96.8 F L Pulse Rate 80 82 Respiratory Rate 20 Blood Pressure 112/79 Pulse Oximetry 100 Oxygen Delivery Room Air 07/09/22 20:45 07/09/22 21:18 07/09/22 21:19 Temperature 97.5 F L Pulse Rate 86 87 87 Respiratory Rate 16 19 Blood Pressure 143/94 H Pulse Oximetry 100 Oxygen Delivery 07/09/22 20:00 07/09/22 20:00 07/09/22 22:12 Temperature 96.5 F L Pulse Rate 86 87 83 Respiratory Rate 19 16 Blood Pressure 119/71 Pulse Oximetry 100 100 Oxygen Delivery Room Air 07/09/22 23:42 07/10/22 00:00 07/10/22 00:00 Temperature 96.8 F L Pulse Rate 78 72 72 Respiratory Rate 18 Blood Pressure 126/72 Pulse Oximetry 100 Oxygen Delivery 07/10/22 04:00 07/10/22 08:04 07/10/22 10:01 Temperature Pulse Rate 77 65 Respiratory Rate Blood Pressure Pulse Oximetry 99 Oxygen Delivery Room Air 07/10/22 08:21 07/10/22 08:00 Temperature Pulse Rate 69 Respiratory Rate Blood Pressure Pulse Oximetry Oxygen Delivery Room Air Intake/Output Intake/Output: Intake & Output 07/07/22 07/08/22 07/09/22 07/10/22 23:59 23:59 23:59 23:59 Intake Total 3370 2460 Output Total 1330 440 Balance 2039 2019 Meds/Results Medications: Active Medications Gen
[2022-07-10 13:17] LABS: Glucose Point of Care 221 mg/dl (65-105)
[2022-07-10 17:11] LABS: Glucose Point of Care 260 mg/dl (65-105)
[2022-07-10] MEDS: MAGNESIUM HYDROXIDE SUSP 30 ML UDC PO (21:30)
[2022-07-11] VITALS (12 sets, daily range): BP systolic 127–141; BP diastolic 73–89; PULSE 67–73; RESP 16–18; TEMP 36–36.4; O2SAT 100
[2022-07-11 05:52] LABS: Basophils Percent Auto 0.6 % (0.2-1.2); Eosinophils Absolute Auto 0.1 K/mm3 (0-0.3); Eosinophils Percent Auto 0.9 % (0-4.4); Hematocrit 27.5 % (42.0-52.0); Hemoglobin 9.4 g/dL (14.0-18.0); Immature Granulocyte Absolute 0.05 K/mm3 (0.00-0.031); Immature Granulocyte Percent A 0.8 % (0-0.5); Immature Platelet Fraction Pct 4.4 % (0.9-11.2); Lymphocytes Absolute Auto 1.59 K/mm3 (0.9-3.2); Lymphocytes Percent Auto 24.7 % (18.3-44.2); Mean Corpuscular HGB Conc 34.2 g/dl (32-36); Mean Corpuscular Hemoglobin 28.8 pg (26-34); Mean Corpuscular Volume 84.4 fl (80-100); Mean Platelet Volume 10.7 fl (7.4-10.4); Monocytes Absolute Auto 0.5 K/mm3 (0.1-0.6); Monocytes Percent Auto 8.4 % (2.6-8.5); Neutrophils Absolute Auto 4.2 K/mm3 (1.3-6.7); Neutrophils Percent Auto 64.6 % (45.5-73.1); Nucleated Red Blood Cells Perc 0.3 % (0.0-0.2); Platelet Count Result 146 k/mm3 (150-375); Red Blood Count 3.26 M/mm3 (4.6-6.20); Red Cell Distribution Width 18.9 % (11.5-14.5); White Blood Count 6.4 K/mm3 (4.5-10.0)
[2022-07-11 06:04] LABS: Alanine Aminotransferase 32 U/L (6-50); Albumin Level 2.1 g/dL (3.5-5.1); Alkaline Phosphatase 907 U/L (38-126); Anion Gap 3 mmol/L (8-16); Aspartate Amino Transferase 81 U/L (17-59); Bilirubin,Total 1.3 mg/dL (0.2-1.3); Blood Urea Nitrogen 54 mg/dL (9-20); Carbon Dioxide 14 mmol/L (22-30); Chloride 116 mmol/L (98-107); Estimated CRCL calculation 21 ml/min; Estimated Glomerular Filt Rate 35; Glucose 227 mg/dL (65-110); Magnesium 1.7 mg/dL (1.6-2.3); Phosphorus 4.9 mg/dL (2.5-4.5); Sodium 133 mmol/L (137-145)
[2022-07-11] MEDS: ACETAMINOPHEN 325 MG TABLET 650 MG PO ×3 (06:14→20:52)
[2022-07-11] MEDS: SODIUM CHLORIDE 0.9% IV 1,000 ML 100 ML IV CONT ×2 (07:45→17:13)
[2022-07-11 07:55] LABS: Glucose Point of Care 162 mg/dl (65-105)
[2022-07-11] MEDS: ATORVASTATIN 40 MG TABLET PO (08:39)
[2022-07-11] MEDS: ASPIRIN 81 MG ENTERIC TABLET PO (08:40)
[2022-07-11] MEDS: FERROUS SULFATE 324 MG TABLET PO (08:40)
[2022-07-11] MEDS: LIPASE/AMYLASE/PROTEASE 12,000 UNITS CAP 2 CAP PO ×3 (08:40→17:12)
[2022-07-11] MEDS: carvediloL 12.5 MG TABLET PO ×2 (08:40→20:54)
[2022-07-11] MEDS: PANTOPRAZOLE 40 MG TABLET PO (08:41)
[2022-07-11] MEDS: SODIUM BICARBONATE TAB 650 MG TABLET PO ×2 (08:41→17:13)
[2022-07-11] MEDS: HEPARIN SODIUM 5,000 UNITS/ML VIAL 5000 UNITS SUB-Q (08:41)
[2022-07-11] MEDS: TAMSULOSIN HCL 0.4 MG CAPSULE PO (08:42)
[2022-07-11] MEDS: CALCIUM CARBONATE (TUMS) 500 MG (200 MG ELEMENTAL) PO ×2 (09:02→17:12)
--- NOTE | 2022-07-11 11:10 | PCOTNOTE ---
Patient declined OT, reports back hurts and wants to sleep. Patient educated over importance of participating in therapy to maintain strength. Patient verbalized understanding. Patient continued to refuse OT. patient made aware therapy will not see him tomorrow due to the holiday. Patient reported bathing last night and sitting up in chair. Patient continued to refuse. Patient not seen for OT. Will continue plan of care.
--- NOTE | 2022-07-11 11:31 | PCPTNOTE ---
Patient refused treatment stating I did not sleep last night! I am having back pain and I am not getting up! Patient educated in the importance of participating in therapy to improve mobility, strength, and endurance. Patient continued to refuse therapy.
[2022-07-11 12:17] LABS: Glucose Point of Care 197 mg/dl (65-105)
--- NOTE | 2022-07-11 13:21 | P.PNNP_ITS ---
Progress Note: A&P Assessment and Plan (1) Renal insufficiency: Code(s): N28.9 - Disorder of kidney and ureter, unspecified Status: Acute Assessment and Plan: * acute versus chronic versus acute on chronic?? * suspect he has some baseline CKD given his history * creatinine noted to be 2.4mg/dl on ER visit on 07/04/22 * nursing records only note acute kidney injury on list of problems * follow-up on renal ultrasound * assess for proteinuria * attempt to get records from [facility] or [facility] * follow repeat labs and UOP (2) Hyperkalemia: Code(s): E87.5 - Hyperkalemia Status: Acute Assessment and Plan: * possibly due to DAVID * however, given history of diabetes, could have a component of Type 4 RTA * K+ normalized following medical management * follow trend of repeat K+ (3) Hypoglycemia: Code(s): E16.2 - Hypoglycemia, unspecified Status: Acute Assessment and Plan: * suspect due to a combination of poor oral intake and use of insulin * blood sugars seem better now * follow accuchecks (4) Acute anemia: Code(s): D64.9 - Anemia, unspecified Status: Acute Assessment and Plan: * etiology unclear * s/p PRBC transfusion * due to CKD?? 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 Subjective Date/time seen: 07/11/22 13:21 No apparent distress aside from pain in his abdomen and back; mentation seems a bit better than when I saw him yesterday; no other acute issues/events overnight or earlier this AM. Exam Narrative: General: thin AA male in NAD Heart: normal S1 and S2; no rub Lungs: clear to auscultation Abdomen: soft, nondistended; RUQ + LUQ drains noted Extremities: no cyanosis or clubbing; no edema Skin: warm and dry Objective Data Vital Signs Vital Signs: Vital Signs Temp Pulse Resp BP Pulse Ox O2 Del Method 07/11/22 08:42 16 100 Room Air 07/11/22 12:00 72 07/11/22 08:00 69 07/11/22 08:40 70 07/11/22 04:00 72 07/11/22 03:42 96.8 F L 72 16 141/89 H 100 07/11/22 00:00 69 07/10/22 20:00 72 07/10/22 20:00 72 07/10/22 21:19 72 07/10/22 20:04 96.6 F L 72 16 140/87 100 07/10/22 16:00 67 07/10/22 14:24 97.6 F 68 18 131/77 100 Intake/Output Intake/Output: Intake & Output 07/08/22 07/09/22 07/10/22 07/11/22 23:59 23:59 23:59 23:59 Intake Total 3370 3800 1290 Output Total 1330 1500 170 Balance 2040 2300 1120 Meds/Results Medications: Active Medications Generic Name Dose Route Start Last Admin Trade Name Freq PRN Reason Stop Dose Admin Acetaminophen 650 mg 07/08/22 19:55 07/11/22 11:44 Acetaminophen 325 Mg Tablet PO 650 mg Q4H PRN Administration Pain or Fever Al Hydrox/Mg Hydrox/Simethicone 30 ml 07/08/22 19:5
--- NOTE | 2022-07-11 13:21 | PM.PNNEP ---
Progress Note: A&P Assessment and Plan (1) Renal insufficiency: Code(s): N28.9 - Disorder of kidney and ureter, unspecified Status: Acute Assessment and Plan: acute versus chronic versus acute on chronic?? suspect he has some baseline CKD given his history creatinine noted to be 2.4mg/dl on ER visit on 07/04/22 nursing records only note acute kidney injury on list of problems follow-up on renal ultrasound assess for proteinuria attempt to get records from [facility] or [facility] follow repeat labs and UOP (2) Hyperkalemia: Code(s): E87.5 - Hyperkalemia Status: Acute Assessment and Plan: possibly due to DAVID however, given history of diabetes, could have a component of Type 4 RTA K+ normalized following medical management follow trend of repeat K+ (3) Hypoglycemia: Code(s): E16.2 - Hypoglycemia, unspecified Status: Acute Assessment and Plan: suspect due to a combination of poor oral intake and use of insulin blood sugars seem better now follow accuchecks (4) Acute anemia: Code(s): D64.9 - Anemia, unspecified Status: Acute Assessment and Plan: etiology unclear s/p PRBC transfusion due to CKD?? 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 Subjective Date/time seen: 07/11/22 13:21 No apparent distress aside from pain in his abdomen and back; mentation seems a bit better than when I saw him yesterday; no other acute issues/events overnight or earlier this AM. Exam Narrative: General: thin AA male in NAD Heart: normal S1 and S2; no rub Lungs: clear to auscultation Abdomen: soft, nondistended; RUQ + LUQ drains noted Extremities: no cyanosis or clubbing; no edema Skin: warm and dry Objective Data Vital Signs Vital Signs: Vital Signs Temp Pulse Resp BP Pulse Ox O2 Del Method 07/11/22 08:42 16 100 Room Air 07/11/22 12:00 72 07/11/22 08:00 69 07/11/22 08:40 70 07/11/22 04:00 72 07/11/22 03:42 96.8 F L 72 16 141/89 H 100 07/11/22 00:00 69 07/10/22 20:00 72 07/10/22 20:00 72 07/10/22 21:19 72 07/10/22 20:04 96.6 F L 72 16 140/87 100 07/10/22 16:00 67 07/10/22 14:24 97.6 F 68 18 131/77 100 Intake/Output Intake/Output: Intake & Output 07/08/22 07/09/22 07/10/22 07/11/22 23:59 23:59 23:59 23:59 Intake Total 3370 3800 1290 Output Total 1330 1500 170 Balance 2040 2300 1120 Meds/Results Medications: Active Medications Generic Name Dose Route Start Last Admin Trade Name Freq PRN Reason Stop Dose Admin Acetaminophen 650 mg 07/08/22 19:55 07/11/22 11:44 Acetaminophen 325 Mg Tablet PO 650 mg Q4H PRN Administration Pain or Fever Al Hydrox/Mg Hydrox/Simethicone 30 ml 07/08/22 19:55 Mag Hydrox/Al Hydrox/Simeth 30 Ml Udc PO QID PRN Dyspepsia Albuterol 2 puff 07/09/22 05:17 Albuterol Sulfate (*Sp) Aerosol 1 Puff INHALATION Q4H PRN Shortness Of Breath Or Wheezing Lipase/Protease/Amylase 2 cap 07/09/22 08:00 07/11/22 11:42 Lipase/Amylase/Protease 12,000 Units Cap PO 2 cap TIDWM [facility] Administration Aspirin 81 mg 07/09/22 09:00 07/11/22 08:40 Aspirin 81 Mg Enteric Tablet PO 81 mg DAILY [facility] Administration Atorvastatin Calcium 40 mg 07/09/22 09:00 07/11/22 08:39 Atorvastatin 40 Mg Tablet PO 40 mg DAILY [facility] Administration Bisacodyl 10 mg 07/09/22 05:17 Bisacodyl 5 Mg Tablet Ec PO DAILY PRN Constipation Calcium Carbonate 200 mg 07/09/22 09:00 07/11/22 09:02 Calcium Carbonate (Tums) 500 Mg (200 Mg Elemental) PO 200 mg BID [facility]
--- NOTE | 2022-07-11 17:12 | PM.IMPN ---
Progress Note: A&P Assessment and Plan (1) Hypoglycemia due to insulin: Code(s): E16.0 - Drug-induced hypoglycemia without coma; T38.3X5A - Adverse effect of insulin and oral hypoglycemic [antidiabetic] drugs, initial encounter Status: Acute Assessment and Plan: Patient with glucose down to 25. Home insulin regimen of NovoLog 3 units t.i.d. a.c. and glargine 10 units daily which are on hold. A1c 7.1. Anemia may be skewing his A1c. Glucose was 227 this morning. Continue sliding scale. Follow (2) Acute kidney injury superimposed on CKD: Code(s): N17.9 - Acute kidney failure, unspecified; N18.9 - Chronic kidney disease, unspecified Status: Acute Assessment and Plan: Cr 2.7 with BUN 66 on admission. Levels climbed but are now improving. Unclear on baseline renal function but Cr 2.4 a few days prior to thie admission. He has persistent metabolic nongap acidosis. This must be chronic since he is on oral bicarb on admission. BUN better at 54 and Cr down to 2.3. Nephrology consulted. Continue IV fluids. (3) Hyperkalemia: Code(s): E87.5 - Hyperkalemia Status: Acute Assessment and Plan: Potassium up to 6.1 felt related to DAVID/CKD. Potassium better today at 5.0 and stable. Continue to monitor on telemetry. (4) Acute anemia: Code(s): D64.9 - Anemia, unspecified Status: Acute Assessment and Plan: Hgb 8.0 on admission but dropped to 6.7. No evidence of acute blood loss and stool guaiac negative. No evidence of hemolysis. Could be related to IV fluids. He received 1 unit PRBC and Hgb climbed to 9.2 and remaining stable. Monitor CBC Plan Biliary drain - secured and draining well. Bili okay but AP 907. Followed at [facility] - alert, confused. stable Anorexia - supplements added Hypocalcemia - related to low albumin. Continue oral replacement. Subjective Date/time seen: 07/11/22 17:12 Interval history: 62yo male with CKD, DM and dementia here for hypoglycemia. Had increasing abd pain and back pain lst night but better today. Wants to go home. No CP or SOB. Exam Narrative: AF 97.4 127/73 69 18 100% ra Gen - very thin male in NARD Chest - Clear anteriorly and in the flanks. nml RR CV - RRR S1/S2 Abd - soft, ND, +BS. Diffusely tender with voluntary guarding. RUQ drain in place with cloudy yellow fluid in bag. LUQ drain in place and capped. Ext - No pedal edema Psych - Nml mood and affect Skin - drain sites clean and dry Objective Data Vital Signs Vital Signs: Vital Signs - 24 hr 07/10/22 20:04 07/10/22 21:19 07/10/22 20:00 Temperature 96.6 F L Pulse Rate 72 72 72 Respiratory Rate 16 Blood Pressure 140/87 Pulse Oximetry 100 Oxygen Delivery 07/10/22 20:00 07/11/22 00:00 07/11/22 03:42 Temperature 96.8 F L Pulse Rate 72 69 72 Respiratory Rate 16 Blood Pressure 141/89 H Pulse Oximetry 100 Oxygen Delivery 07/11/22 04:00 07/11/22 08:40 07/11/22 08:00 Temperature Pulse Rate 72 70 69 Respiratory Rate Blood Pressure Pulse Oximetry Oxygen Delivery 07/11/22 12:00 07/11/22 08:42 07/11/22 16:00 Temperature Pulse Rate 72 67 Respiratory Rate 16 Blood Pressure Pulse Oximetry 100 Oxygen Delivery Room Air 07/11/22 16:04 Temperature 97.4 F L Pulse Rate 69 Respiratory Rate 18 Blood Pressure 127/73 Pulse Oximetry 100 Oxygen Delivery Intake/Output Intake/Output: Intake & Output 07/08/22 07/09/22 07/10/22 07/11/22 23:59 23:59 23:59 23:59 Intake Total 3370 3800 1290 Output Total 1330 1500 170 Balance 2040 2300 1120 Meds/Results Medications: Active Medications Generic Name Dose Route Start Last Admin Trade Name Freq PRN Reason Stop Dose Admin Acetaminophen 650 mg 07/08/22 19:55 07/11/22 11:44 Acetaminophen 325 Mg Tablet PO 650 mg Q4H PRN Administration Pain or Fever Al Hydrox/Mg Hydrox/Simethicone 30 ml 07/08/22 19:55
[2022-07-11 17:18] LABS: Glucose Point of Care 85 mg/dl (65-105)
[2022-07-11 19:55] LABS: Glucose Point of Care 54 mg/dl (65-105)
[2022-07-11 20:58] LABS: Glucose Point of Care 91 mg/dl (65-105)
[2022-07-11] MEDS: FLUTICASONE/SALMETEROL 115-21 MCG INHALER 1 PUFF 2 PUFF INHALATION (21:19)
[2022-07-12] VITALS (19 sets, daily range): BP systolic 111–147; BP diastolic 64–77; PULSE 52–66; RESP 16; TEMP 33.8–36; O2SAT 92–100
--- NOTE | 2022-07-12 00:46 | PC.NURSE ---
Patient can be argumentative, uncooperative with care. took blood glucose 1944-
--- NOTE | 2022-07-12 02:49 | PC.NURSE ---
Pt IV out of vein. Removed . Several attempts to restart- unsuccessful. Further attempts- pt refused until am. No site at present--- No IVF
[2022-07-12 04:53] LABS: Total Protein Urine Random 37 mg/dL; Urea Random Urine 549 MG/DL
[2022-07-12 04:56] LABS: Sodium Urine Random 73 meq/L
[2022-07-12 04:57] LABS: Total Protein Urine Random 37 mg/dL; Ur Ttl Prot Creatinine Ratio 0.93 mg/mg (0-0.20)
[2022-07-12 04:59] LABS: Hematocrit 25.3 % (42.0-52.0); Hemoglobin 8.7 g/dL (14.0-18.0); Immature Platelet Fraction Pct 3.7 % (0.9-11.2); Mean Corpuscular HGB Conc 34.4 g/dl (32-36); Mean Corpuscular Hemoglobin 28.4 pg (26-34); Mean Corpuscular Volume 82.7 fl (80-100); Mean Platelet Volume 10.3 fl (7.4-10.4); Platelet Count Result 112 k/mm3 (150-375); Red Blood Count 3.06 M/mm3 (4.6-6.20); Red Cell Distribution Width 18.7 % (11.5-14.5); White Blood Count 9.7 K/mm3 (4.5-10.0)
[2022-07-12 05:10] LABS: Albumin Level 1.9 g/dL (3.5-5.1); Anion Gap 7 mmol/L (8-16); Blood Urea Nitrogen 50 mg/dL (9-20); Calcium 6.1 mg/dL (8.4-10.2); Carbon Dioxide 14 mmol/L (22-30); Chloride 119 mmol/L (98-107); Creatine Kinase 49 U/L (55-170); Estimated CRCL calculation 22 ml/min; Estimated Glomerular Filt Rate 37; Glucose < 30 mg/dL (65-110); Phosphorus 4.8 mg/dL (2.5-4.5); Potassium 4.7 mmol/L (3.4-5.0); Sodium 140 mmol/L (137-145)
[2022-07-12] MEDS: DEXTROSE 50% 25 GM/50 ML SYRINGE (05:17)
[2022-07-12] MEDS: DEXTROSE 5%/0.9% SOD CHL 1,000 ML 100 ML IV CONT ×2 (05:18→16:47)
[2022-07-12] MEDS: DEXTROSE 50% 25 GM/50 ML SYRINGE IV PUSH (05:18)
[2022-07-12 05:22] LABS: Glucose Point of Care < 20 mg/dl (65-105)
[2022-07-12 05:22] LABS: Glucose Point of Care 455 mg/dl (65-105)
[2022-07-12 05:22] LABS: Glucose Point of Care < 20 mg/dl (65-105)
--- NOTE | 2022-07-12 05:43 | PM.CCN ---
Critical Care Event Note Summary Code activated: No Narrative: At just after 05:00 rapid response was called on the patient. Nursing staff had went into check on the patient any was lethargic and cold to touch. They checked the temperature rectally because they could not obtain I reading with a temporal thermometer and rectal temperature was 92?. Accu-Chek at that time was less than 20. Rapid response was called. When they arrived to the patient's bedside the patient's repeat temperature was actually 95. The patient was initially minimally responsive eyes open and staring but after 2 amps of dextrose the patient's was talking but still slow to respond. The patient is frail, elderly, thin body habitus and appears cachectic. The patient had not received any insulin therapy since admission. The patient had hypoglycemia when he woke up yesterday as well. I have asked nursing staff to start checking the patient's Accu-Cheks at 02:00 to try to prevent severe hypoglycemia. The patient was wrapped in multiple lymph blankets during the rapid response. His temperature was already going up by the end of the rapid response was 95.2. The patient had just received blood in IV fluids which may have also helped facilitate his temperature drop. Repeat Accu-Chek at the end of rapid response was 455. Will add D5 to the patient's IV fluids for few hours and repeat Accu-Chek at 06:50am. 32 minute spent in critical care activities. This case had a high probability of a clinically significant, sudden, or life threatening deterioration of this patient's condition which required my full and direct attention, intervention and personal management. Critical care time: 30 - 74 mins
[2022-07-12 07:00] LABS: Glucose Point of Care 172 mg/dl (65-105)
--- NOTE | 2022-07-12 07:03 | PC.NURSE ---
Pt refused to have new iv site started.Pt with poor po intake Incontinent of 2 large soft stools. METAL SOLDERER took Temp several times, low reading. Took rectal temp 95.2 bedside blood glucose taken 0502- results 14 retook blood glucose result 17. cover assembler called See flowsheets Last blood glucose at 0650 172 see flowsheet
[2022-07-12 09:08] LABS: Glucose Point of Care 129 mg/dl (65-105)
--- NOTE | 2022-07-12 10:59 | PM.IMPN ---
Progress Note: A&P Assessment and Plan (1) Hypoglycemia: Code(s): E16.2 - Hypoglycemia, unspecified Status: Acute Assessment and Plan: Patient presented with glucose down to 25. Home insulin regimen of NovoLog 3 units t.i.d. a.c. and glargine 10 units daily which are on hold. A1c 7.1. Anemia may be skewing his A1c. -Glucose down to <20 this morning. He received Novolog 3U once on 07/09 for elevated glucose but nothing since. -Dextrose bolus given. IVF started with dextrose. -stop insulin for sliding scale but continue to monitor glucose values. Follow -consider liver insufficiency. Obtain old records. Check CT scan (2) Hypothermia: Code(s): T68.XXXA - Hypothermia, initial encounter Status: Acute Assessment and Plan: Temp dropped to 92.5. [place] related to cachexia. Also related to ambient room tempeture. Sepsis seems less likely. Follow. (3) Acute kidney injury superimposed on CKD: Code(s): N17.9 - Acute kidney failure, unspecified; N18.9 - Chronic kidney disease, unspecified Status: Acute Assessment and Plan: Cr 2.7 with BUN 66 on admission. Levels climbed intially but are now improving. Unclear on baseline renal function but Cr 2.4 a few days prior to this admission. He has persistent metabolic nongap acidosis which is chronic (he is on oral bicarb on admission). BUN better at 50 and Cr down to 2.2. Nephrology consulted and appreciate their input. Oral Bicarb advanced. Continue IV fluids. (4) Hyperkalemia: Code(s): E87.5 - Hyperkalemia Status: Acute Assessment and Plan: Potassium up to 6.1 felt related to DAVID/CKD. Potassium better today at 4.7 and stable. Continue to monitor on telemetry. (5) Acute anemia: Code(s): D64.9 - Anemia, unspecified Status: Acute Assessment and Plan: Hgb 8.0 on admission but dropped to 6.7. No evidence of acute blood loss and stool guaiac negative. No evidence of hemolysis. Could be related to IV fluids. He received 1 unit PRBC and Hgb climbed to 9.2 and remaining stable in the 8-9 range. Monitor CBC (6) Insulin dependent type 2 diabetes mellitus: Code(s): E11.9 - Type 2 diabetes mellitus without complications; Z79.4 - [facility] (current) use of insulin Status: Acute Assessment and Plan: As above Plan Biliary drain - secured and draining well. Bili okay but elevated alk phos. Followed at [facility] - alert, oriented Anorexia - related to chronic acidosis? supplements added Hypocalcemia - related to low albumin. Continue oral replacement. Subjective Date/time seen: 07/12/22 10:59 Interval history: 62yo male with CKD, DM and dementia here for hypoglycemia. Patietn again had hypoglycemia this morning to glucose to <20. ALso noted to be hypothermic with temp 92.8. He complains of trouble swallowing that is mostly SOB with eating. He states no one has mentioned a PEG tube but is adamently against this. Old records in the chart showing he has HepC in the past. Exam Narrative: AF Tmin 92.8 95.5 147/77 63 16 92% ra Gen - very thin male in NARD eating breakfast Chest - Clear anteriorly and in the flanks. nml RR CV - RRR S1/S2 Abd - soft, scaphoid, +BS. Mild diffuse tenderness. RUQ drain in place with cloudy yellow fluid in bag. LUQ drain in place and capped. Ext - No pedal edema Psych - Nml mood and affect. AOx4 Skin - cool and dry Objective Data Vital Signs Vital Signs: Vital Signs - 24 hr 07/11/22 12:00 07/11/22 16:00 07/11/22 16:04 Temperature 97.4 F L Pulse Rate 72 67 69 Respiratory Rate 18 Blood Pressure 127/73 Pulse Oximetry 100 07/11/22 20:10 07/11/22 20:54 07/11/22 20:00 Temperature 97.6 F Pulse Rate 72 72 73 Respiratory Rate 16 Blood Pressure 134/83 Pulse Oximetry 100 07/12/22 00:00 07/12/22 04:20 07/12/22 05:37 Temperature 92.8 F L 92.8 F L Pulse Rate 65 52 L 52 L Respiratory Rate 16 16 Blood
[2022-07-12] MEDS: SODIUM BICARBONATE TAB 650 MG TABLET 1300 MG PO ×3 (11:31→17:54)
[2022-07-12] MEDS: PANTOPRAZOLE 40 MG TABLET PO (11:32)
[2022-07-12] MEDS: LIPASE/AMYLASE/PROTEASE 12,000 UNITS CAP 2 CAP PO ×3 (11:32→17:54)
[2022-07-12] MEDS: ASPIRIN 81 MG ENTERIC TABLET PO (11:32)
[2022-07-12] MEDS: TAMSULOSIN HCL 0.4 MG CAPSULE PO (11:33)
[2022-07-12] MEDS: FERROUS SULFATE 324 MG TABLET PO (11:33)
[2022-07-12] MEDS: ATORVASTATIN 40 MG TABLET PO (11:33)
[2022-07-12] MEDS: carvediloL 12.5 MG TABLET PO ×2 (11:33→22:07)
[2022-07-12] MEDS: CALCIUM CARBONATE (TUMS) 500 MG (200 MG ELEMENTAL) PO ×2 (11:39→17:54)
[2022-07-12] MEDS: ACETAMINOPHEN 325 MG TABLET 650 MG PO ×2 (11:39→18:01)
[2022-07-12 12:32] LABS: Glucose Point of Care 159 mg/dl (65-105)
--- NOTE | 2022-07-12 13:23 | PM.PNNEP ---
Progress Note: A&P Assessment and Plan (1) Renal insufficiency: Code(s): N28.9 - Disorder of kidney and ureter, unspecified Status: Acute Assessment and Plan: acute versus chronic versus acute on chronic?? suspect he has some baseline CKD given his history creatinine noted to be 2.4mg/dl on ER visit on 07/04/22 nursing records only note acute kidney injury on list of problems renal ultrasound consistent with CKD ( medical renal disease ) moderate protein in urine -- ~ 900mg of proteinuria present attempt to get records from [facility] or [facility] follow repeat labs and UOP (2) Hyperkalemia: Code(s): E87.5 - Hyperkalemia Status: Acute Assessment and Plan: possibly due to DAVID however, given history of diabetes, could have a component of Type 4 RTA K+ normalized following medical management follow trend of repeat K+ (3) Hypoglycemia: Code(s): E16.2 - Hypoglycemia, unspecified Status: Acute Assessment and Plan: recurrent issue (as evidenced by events this AM) initially suspected due to a combination of poor oral intake 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 Subjective Date/time seen: 07/12/22 13:23 Events noted earlier this AM -- rapid response called due hypoglycemia, hypothermia, and associated altered mental status; improvement noted with supplemental glucose and warming blankets; currently on D5 IVFs to help with hypoglycemia. Exam Narrative: General: thin/cachetic AA male in NAD Heart: normal S1 and S2; no rub Lungs: clear to auscultation Abdomen: soft, nondistended; RUQ + LUQ drains noted Extremities: no cyanosis or clubbing; no edema Skin: warm and intact Objective Data Vital Signs Vital Signs: Vital Signs Temp Pulse Resp BP Pulse Ox O2 Del Method 11/24/22 11:33 66 07/12/22 08:15 Room Air 07/12/22 08:15 64 07/12/22 04:00 55 L 07/12/22 06:25 95.5 F L 63 16 147/77 H 92 07/12/22 05:37 92.8 F L 52 L 16 111/64 100 07/12/22 04:20 92.8 F L 52 L 16 111/64 100 07/12/22 00:00 65 07/11/22 20:00 73 07/11/22 20:54 72 07/11/22 20:10 97.6 F 72 16 134/83 100 07/11/22 16:04 97.4 F L 69 18 127/73 100 07/11/22 16:00 67 Intake/Output Intake/Output: Intake & Output 07/09/22 07/10/22 07/11/22 07/12/22 23:59 23:59 23:59 23:59 Intake Total 3370 3800 2690 440 Output Total 1330 1500 470 175 Balance 2040 2300 2220 265 Meds/Results Medications: Active Medications Generic Name Dose Route Start Last Admin Trade Name Freq PRN Reason Stop Dose Admin Acetaminophen 650 mg 07/08/22 19:55 07/12/22 11:39 Acetaminophen 325 Mg Tablet PO 650 mg Q4H PRN Administration Pain or Fever Al Hydrox/Mg Hydrox/Simethicone 30 ml 07/08/22 19:55 Mag Hydrox/Al Hydrox/Simeth 30 Ml Udc PO QID PRN Dyspepsia Albuterol 2 puff 07/09/22 05:17 Albuterol Sulfate (*Sp) Aerosol 1 Puff INHALATION Q4H PRN Shortness Of Breath Or Wheezing Lipase/Protease/Amylase 2 cap 07/09/22 08:00 07/12/22 13:28 Lipase/Amylase/Protease 12,000 Units Cap PO 2 cap TIDWM BRIDGETT Administration Aspirin 81 mg 07/09/22 09:00 07/12/22 11:32 Aspirin 81 Mg Enteric Tablet PO 81 mg DAILY BRIDGETT Administration Atorvastatin Calcium 40 mg
--- NOTE | 2022-07-12 13:23 | P.PNNP_ITS ---
Progress Note: A&P Assessment and Plan (1) Renal insufficiency: Code(s): N28.9 - Disorder of kidney and ureter, unspecified Status: Acute Assessment and Plan: * acute versus chronic versus acute on chronic?? * suspect he has some baseline CKD given his history * creatinine noted to be 2.4mg/dl on ER visit on 07/04/22 * nursing records only note acute kidney injury on list of problems * renal ultrasound consistent with CKD ( medical renal disease ) * moderate protein in urine -- ~ 900mg of proteinuria present * attempt to get records from [facility] or [facility] * follow repeat labs and UOP (2) Hyperkalemia: Code(s): E87.5 - Hyperkalemia Status: Acute Assessment and Plan: * possibly due to DAVID * however, given history of diabetes, could have a component of Type 4 RTA * K+ normalized following medical management * follow trend of repeat K+ (3) Hypoglycemia: Code(s): E16.2 - Hypoglycemia, unspecified Status: Acute Assessment and Plan: * recurrent issue (as evidenced by events this AM) * initially suspected due to a combination of poor oral intake and 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 * may need/benefit from Epogen * follow H/H (5) Insulin dependent type 2 diabetes mellitus: Code(s): E11.9 - Type 2 diabetes mellitus without complications; Z79.4 - [facility] (current) use of insulin Status: Acute Assessment and Plan: * follow accuchecks * see #3 Will continue to follow. Subjective Date/time seen: 07/12/22 13:23 Events noted earlier this AM -- rapid response called due hypoglycemia, hypothermia, and associated altered mental status; improvement noted with supplemental glucose and warming blankets; currently on D5 IVFs to help with hypoglycemia. Exam Narrative: General: thin/cachetic AA male in NAD Heart: normal S1 and S2; no rub Lungs: clear to auscultation Abdomen: soft, nondistended; RUQ + LUQ drains noted Extremities: no cyanosis or clubbing; no edema Skin: warm and intact Objective Data Vital Signs Vital Signs: Vital Signs Temp Pulse Resp BP Pulse Ox O2 Del Method 07/12/22 11:33 66 07/12/22 08:15 Room Air 07/12/22 08:15 64 07/12/22 04:00 55 L 07/12/22 06:25 95.5 F L 63 16 147/77 H 92 07/12/22 05:37 92.8 F L 52 L 16 111/64 100 07/12/22 04:20 92.8 F L 52 L 16 111/64 100 07/12/22 00:00 65 07/11/22 20:00 73 07/11/22 20:54 72 07/11/22 20:10 97.6 F 72 16 134/83 100 07/11/22 16:04 97.4 F L 69 18 127/73 100 07/11/22 16:00 67 Intake/Output Intake/Output: Intake & Output 07/09/22 07/10/22 07/11/22 07/12/22 23:59 23:59 23:59 23:59 Intake Total 3370 3800 2690 440 Output Total 1330 1500 470 175 Balance 2040 2300 2220 265 Meds/Results Medications: Active Medications
--- NOTE | 2022-07-12 14:24 | PCRCNOTE ---
Window of time for administration has passed. See next scheduled administration.
--- NOTE | 2022-07-12 17:10 | PC.NURSE ---
PT refused CT scan appx 1 hour ago. Stated he was trying to get some rest and requested that the CT scan be performed at a later time this evening or corporate health consultant.
[2022-07-12 17:41] LABS: Glucose Point of Care 116 mg/dl (65-105)
--- NOTE | 2022-07-12 22:23 | PC.NURSE ---
Addendum entered by Josue Dockery RN 07/12/22 22:43: Pt rectal temp decreased from 94.2 to 94.0, pt will be transferred to IMU at this time Original Note: Pt frequently uncooperative and refusing care. Pt finally agreeable to checking rectal temp after multiple low readings from oral, axillary, and temporal thermometers. Rectal temp reads 94.2 and a elias hugger has been ordered to use short term on the medical floor, pt will be transferred if requiring longer than one hour.
[2022-07-12 22:50] LABS: Glucose Point of Care 93 mg/dl (65-105)
[2022-07-13] VITALS (19 sets, daily range): BP systolic 103–117; BP diastolic 62–69; PULSE 57–65; RESP 16–24; TEMP 35.1–36.7; O2SAT 97–100
[2022-07-13] MEDS: LIDOCAINE HCL 2% GEL UROJET 10 ML PKG MUCOUS MEM (00:32)
--- NOTE | 2022-07-13 01:07 | PC.NURSE ---
Pt transferred to IMU 204. Report given to Chapis HOYOS. Pt transported by bed with all belongings.
[2022-07-13] MEDS: DEXTROSE 5%/0.9% SOD CHL 1,000 ML 100 ML IV CONT ×2 (03:48→16:00)
[2022-07-13 04:34] LABS: Hematocrit 24.3 % (42.0-52.0); Hemoglobin 8.5 g/dL (14.0-18.0); Immature Platelet Fraction Pct 3.6 % (0.9-11.2); Mean Corpuscular Hemoglobin 27.8 pg (26-34); Mean Corpuscular Volume 79.4 fl (80-100); Mean Platelet Volume 10.2 fl (7.4-10.4); Platelet Count Result 93 k/mm3 (150-375); Red Blood Count 3.06 M/mm3 (4.6-6.20); Red Cell Distribution Width 18.9 % (11.5-14.5); White Blood Count 6.9 K/mm3 (4.5-10.0)
[2022-07-13 04:42] LABS: Prothrombin Time 22.2 Seconds (11.1-14.7)
[2022-07-13 04:46] LABS: Alanine Aminotransferase 30 U/L (6-50); Alkaline Phosphatase 741 U/L (38-126); Anion Gap 7 mmol/L (8-16); Aspartate Amino Transferase 78 U/L (17-59); Bilirubin,Total 1.1 mg/dL (0.2-1.3); Blood Urea Nitrogen 50 mg/dL (9-20); Carbon Dioxide 15 mmol/L (22-30); Chloride 122 mmol/L (98-107); Estimated CRCL calculation 21 ml/min; Estimated Glomerular Filt Rate 35; Glucose 51 mg/dL (65-110); Potassium 4.6 mmol/L (3.4-5.0); Sodium 144 mmol/L (137-145)
--- NOTE | 2022-07-13 04:55 | PC.NURSE ---
patient refused glucose oral gel for a blood sugar of 51, patient is alert and oriented and has multiple c/o.
[2022-07-13] MEDS: ACETAMINOPHEN 325 MG TABLET 650 MG PO ×2 (05:00→13:54)
[2022-07-13 05:25] LABS: Band Neutrophils Percent 30 % (0-6); Eosinophils Absolute Manual 0.06 K/mm3 (0.02-0.5); Eosinophils Percent Manual 1 % (0-4); Lymphocytes Absolute Manual 1.31 K/mm3 (1.1-4.5); Neutrophils Absolute Manual 5.52 K/mm3 (1.3-6.7); Neutrophils Percent Manual 50 % (46-73); Total Cells Counted 100
[2022-07-13 05:26] LABS: Atypical Lymphocytes Present; Burr Cells 1+ (NORMAL); Crenated RBC 1+ (NORMAL); Poikilocytosis 2+ (NORMAL); Schistocytes 2+ (NORMAL); Smudge Cells FEW
[2022-07-13 05:27] LABS: Hypochromasia 1+ (NORMAL)
[2022-07-13 05:28] LABS: Acanthocytes 2+ (NORMAL); Macrocytosis 1+ (NORMAL); Target Cells 2+ (NORMAL)
[2022-07-13 05:29] LABS: Anisocytosis 1+ (NORMAL); Microcytosis 1+ (NORMAL)
[2022-07-13 05:34] LABS: Glucose Point of Care 90 mg/dl (65-105)
[2022-07-13 05:47] LABS: Vitamin B12 > 1000.0 pg/mL (239-931)
[2022-07-13] MEDS: PANTOPRAZOLE 40 MG TABLET PO (08:02)
[2022-07-13] MEDS: LIPASE/AMYLASE/PROTEASE 12,000 UNITS CAP 2 CAP PO ×3 (08:02→18:01)
[2022-07-13] MEDS: CALCIUM GLUC 2,000 MG/NS 100ML 2,000 MG/100 ML BAG 100 MG IVPB (08:02)
[2022-07-13] MEDS: ATORVASTATIN 40 MG TABLET PO (08:02)
[2022-07-13] MEDS: ASPIRIN 81 MG ENTERIC TABLET PO (08:02)
[2022-07-13] MEDS: FERROUS SULFATE 324 MG TABLET PO (08:03)
[2022-07-13] MEDS: carvediloL 12.5 MG TABLET PO ×2 (08:03→20:21)
[2022-07-13] MEDS: CALCIUM CARBONATE (TUMS) 500 MG (200 MG ELEMENTAL) PO ×2 (08:03→18:01)
[2022-07-13] MEDS: TAMSULOSIN HCL 0.4 MG CAPSULE PO (08:03)
[2022-07-13] MEDS: SODIUM BICARBONATE TAB 650 MG TABLET 1300 MG PO ×3 (08:03→18:01)
[2022-07-13] MEDS: FLUTICASONE/SALMETEROL 115-21 MCG INHALER 1 PUFF 2 PUFF INHALATION ×2 (08:32→20:06)
[2022-07-13 08:55] LABS: Glucose Point of Care 59 mg/dl (65-105)
[2022-07-13 09:07] LABS: Glucose Point of Care 77 mg/dl (65-105)
[2022-07-13 10:00] LABS: Glucose Point of Care 104 mg/dl (65-105)
[2022-07-13 10:45] LABS: Vitamin D 25 Hydroxy < 12.8 ng/mL
[2022-07-13 11:25] LABS: Lipase < 10 U/L (23-300)
--- NOTE | 2022-07-13 12:07 | P.PNNP_ITS ---
Progress Note: A&P Assessment and Plan (1) Renal insufficiency: Code(s): N28.9 - Disorder of kidney and ureter, unspecified Status: Acute Assessment and Plan: * acute versus chronic versus acute on chronic?? * suspect he has some baseline CKD given his history * creatinine noted to be 2.4mg/dl on ER visit on 07/04/22 * nursing records only note acute kidney injury on list of problems * renal ultrasound consistent with CKD ( medical renal disease ) * moderate protein in urine -- ~ 900mg of proteinuria present * attempting to get records from [facility], [facility], or [facility] * follow repeat labs and UOP (2) Hyperkalemia: Code(s): E87.5 - Hyperkalemia Status: Acute Assessment and Plan: * possibly due to DAVID * however, given history of diabetes, could have a component of Type 4 RTA * K+ normalized following medical management * follow trend of repeat K+ (3) Hypoglycemia: Code(s): E16.2 - Hypoglycemia, unspecified Status: Acute Assessment and Plan: * recurrent issue (as evidenced by events this AM) * initially suspected due to a combination of poor oral intake 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 * may need/benefit from Epogen * follow H/H (5) Insulin dependent type 2 diabetes mellitus: Code(s): E11.9 - Type 2 diabetes mellitus without complications; Z79.4 - [facility] (current) use of insulin Status: Acute Assessment and Plan: * follow accuchecks * see #3 Will continue to follow. Subjective Date/time seen: 07/13/22 12:07 Continues to have ongoing issues with hypoglycemia as noted by readings this AM; moved to IMU due ongoing hypothermia and initiated on Jailene hugger with subsequent improvement in temperature; still has poor oral intake. Exam Narrative: General: thin/cachectic AA male in NAD Heart: normal S1 and S2; no rub Lungs: clear to auscultation Abdomen: soft, nondistended; RUQ + LUQ drains noted Extremities: no cyanosis or clubbing; no edema Skin: no rash Objective Data Vital Signs Vital Signs: Vital Signs Temp Pulse Resp BP Pulse Ox O2 Del Method 07/13/22 12:00 98.1 F 62 24 H 114/62 100 07/13/22 08:00 Room Air 07/13/22 08:00 59 L 07/13/22 08:38 97.6 F 60 20 109/69 100 07/13/22 08:34 97 Room Air 07/13/22 08:03 60 07/13/22 04:51 97.4 F L 07/13/22 04:51 65 07/13/22 04:50 97.4 F L 65 20 109/65 97 07/13/22 04:00 57 L 16 100 Room Air 07/13/22 04:00 62 07/13/22 01:00 96.4 F L 07/13/22 01:30 96.7 F L 07/13/22 02:00 97.4 F L 07/12/22 20:00 57 L 07/13/22 00:44 96.0 F L 07/13/22 00:30 95.1 F L 07/13/22 00:00 57 L 16 100 Room Air 07/13/22 00:00 95.1 F L 07/13/22 00:00 57 L 07/12/22 23:30 60 16 100 Room Air 07/12/22 23:20 93.8 F L 07/12/22 23:00 94.0 F L 07/12/22 22:45 93.
--- NOTE | 2022-07-13 12:07 | PM.PNNEP ---
Progress Note: A&P Assessment and Plan (1) Renal insufficiency: Code(s): N28.9 - Disorder of kidney and ureter, unspecified Status: Acute Assessment and Plan: acute versus chronic versus acute on chronic?? suspect he has some baseline CKD given his history creatinine noted to be 2.4mg/dl on ER visit on 07/04/22 nursing records only note acute kidney injury on list of problems renal ultrasound consistent with CKD ( medical renal disease ) moderate protein in urine -- ~ 900mg of proteinuria present attempting to get records from [facility], or [facility] follow repeat labs and UOP (2) Hyperkalemia: Code(s): E87.5 - Hyperkalemia Status: Acute Assessment and Plan: possibly due to DAVID however, given history of diabetes, could have a component of Type 4 RTA K+ normalized following medical management follow trend of repeat K+ (3) Hypoglycemia: Code(s): E16.2 - Hypoglycemia, unspecified Status: Acute Assessment and Plan: recurrent issue (as evidenced by events this AM) initially suspected due to a combination of poor oral intake and 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 may need/benefit from Epogen follow H/H (5) Insulin dependent type 2 diabetes mellitus: Code(s): E11.9 - Type 2 diabetes mellitus without complications; Z79.4 - [facility] (current) use of insulin Status: Acute Assessment and Plan: follow accuchecks see #3 Will continue to follow. Subjective Date/time seen: 07/13/22 12:07 Continues to have ongoing issues with hypoglycemia as noted by readings this AM; moved to IMU due ongoing hypothermia and initiated on Jailene hugger with subsequent improvement in temperature; still has poor oral intake. Exam Narrative: General: thin/cachectic AA male in NAD Heart: normal S1 and S2; no rub Lungs: clear to auscultation Abdomen: soft, nondistended; RUQ + LUQ drains noted Extremities: no cyanosis or clubbing; no edema Skin: no rash Objective Data Vital Signs Vital Signs: Vital Signs Temp Pulse Resp BP Pulse Ox O2 Del Method 07/13/22 12:00 98.1 F 62 24 H 114/62 100 07/13/22 08:00 Room Air 07/13/22 08:00 59 L 07/13/22 08:38 97.6 F 60 20 109/69 100 07/13/22 08:34 97 Room Air 07/13/22 08:03 60 07/13/22 04:51 97.4 F L 07/13/22 04:51 65 07/13/22 04:50 97.4 F L 65 20 109/65 97 07/13/22 04:00 57 L 16 100 Room Air 07/13/22 04:00 62 07/13/22 01:00 96.4 F L 07/13/22 01:30 96.7 F L 07/13/22 02:00 97.4 F L 07/12/22 20:00 57 L 07/13/22 00:44 96.0 F L 07/13/22 00:30 95.1 F L 07/13/22 00:00 57 L 16 100 Room Air 07/13/22 00:00 95.1 F L 07/13/22 00:00 57 L 07/12/22 23:30 60 16 100 Room Air 07/12/22 23:20 93.8 F L 07/12/22 23:00 94.0 F L 07/12/22 22:45 93.2 F L 07/12/22 22:30 94.0 F L 07/12/22 22:15 94.2 F L 07/12/22 22:07 60 07/12/22 20:24 95.3 F L 58 L 16 125/77 100 07/12/22 16:00 60 07/12/22 15:20 96.8 F L 62 16 123/68 100 Intake/Output Intake/Output: Intake & Output 07/10/22 07/11/22 07/12/22 07/13/22 23:59 23:59 23:59 23:59 Intake Total 3800 2690 1740 1000 Output Total 1500 470 625 300 Balance 2300 2220 1115 700 Meds/Results Medications: Active Medications Generic Name Dose Route Start Last Admin Trade Name Freq PRN Reason Stop Dose Admin Acetaminophen 650 mg 07/08/22 19:55 07/13/22 05:00 Acetaminophen 325 Mg Tablet PO 650 mg Q4H PRN Administration Pain or Fever Al Hydrox/Mg
[2022-07-13 12:21] LABS: Glucose Point of Care 84 mg/dl (65-105)
--- NOTE | 2022-07-13 12:27 | PC.NURSE ---
Patient refusing core temps. Refusing juice and food at meal times for FSBS < 100. If drops below 70 will give d10w. Currently 84.
--- NOTE | 2022-07-13 14:42 | PM.IMPN ---
Progress Note: A&P Assessment and Plan (1) Hypoglycemia: Code(s): E16.2 - Hypoglycemia, unspecified Status: Acute Assessment and Plan: Patient presented with glucose down to 25. Home insulin regimen held; was on NovoLog 3 units t.i.d. and glargine 10 units daily. A1c 7.1. Anemia may be skewing his A1c. -Glucose dropped <20 treated with dextrose bolus and IVF with dextrose. -consider liver insufficiency. Obtain old records. Check CT scan -continue to monitor glucose values -encourage oral intake. He refuses NGT/PEG (2) Hypothermia: Code(s): T68.XXXA - Hypothermia, initial encounter Status: Acute Assessment and Plan: Temp drops frequently. [place] related to cachexia and loss of soft tissue. Also related to ambient room temperature. Sepsis seems less likely but will check BCx. Follow. (3) Acute kidney injury superimposed on CKD: Code(s): N17.9 - Acute kidney failure, unspecified; N18.9 - Chronic kidney disease, unspecified Status: Acute Assessment and Plan: Cr 2.7 with BUN 66 on admission. Levels climbed intially but are now improving. Unclear on baseline renal function but Cr 2.4 a few days prior to this admission. He has persistent metabolic nongap acidosis which is chronic (he is on oral bicarb on admission). BUN stable at 50 and Cr at 2.3. Nephrology consulted and appreciate their input. Oral Bicarb advanced. Continue IV fluids. (4) Hyperkalemia: Code(s): E87.5 - Hyperkalemia Status: Acute Assessment and Plan: Potassium was at 6.1 felt related to DAVID/CKD. Potassium normal and stable now. Continue to monitor on telemetry. (5) Acute anemia: Code(s): D64.9 - Anemia, unspecified Status: Acute Assessment and Plan: Hgb 8.0 on admission but dropped to 6.7. No evidence of acute blood loss and stool guaiac negative. No evidence of hemolysis. Could be related to IV fluids. He received 1 unit PRBC and Hgb climbed to 9.2 and remaining stable in the 8-9 range. 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 Bili okay but elevated alk phos. Followed at [place]. Suspect underlying liver disease possibly from HepC. Old records pending. INR 2.0 to suggest hepatic insuffiency or from VitK malabsorption. Refusing CT. Check RUQ US. Add ammonia level Dementia - alert, oriented Thrombocytopenia - Plt count dropping to 93K now. On Heparin (although only received one dose due to patient refusal) so will stop. Check anti-plt Ab. Anorexia - related to chronic acidosis? supplements added Hypocalcemia - related to low albumin and Vit D defic?. Continue oral replacement. IV given once. Subjective Date/time seen: 07/13/22 14:42 Interval history: 62yo male with CKD, DM and dementia here for hypoglycemia. Patient became hypothermic overnight and was moved to IMU to use the Bairhugger. Temperatire has improved. He still having sever abd pain and not eating much. He was able to get up to the side of the bed with assistance. Exam Narrative: AF Tmin 93.2 98.1 114/62 62 24 100% ra Gen - very thin male in NARD Chest - distant clear BS, nml RR CV - RRR S1/S2. Tele showing no alarms Abd - soft, scaphoid, +BS. Dffuse tenderness. RUQ drain in place with cloudy yellow fluid in bag. LUQ drain in place and capped. - Cline secured draining clear yellow urine Ext - No pedal edema Psych - Nml mood and affect Skin - cool and dry Objective Data Vital Signs Vital Signs: Vital Signs - 24 hr 07/12/22 15:20 07/12/22 16:00 07/12/22 20:24 Temperature 96.8 F L 95.3 F L Pulse Rate 62 60 58 L Respiratory Rate 16 16 Blood Pressure 123/68 125/77 Pulse Oximetry 100 100 Oxygen Delivery 07/12/22 22:07
[2022-07-13 16:35] LABS: Glucose Point of Care 62 mg/dl (65-105)
[2022-07-13 17:59] LABS: Ammonia 53 umol/L (9-30)
[2022-07-13 18:12] LABS: Glucose Point of Care 96 mg/dl (65-105)
[2022-07-13 20:44] LABS: Glucose Point of Care 89 mg/dl (65-105)
[2022-07-13] MEDS: DEXTROSE 50% 25 GM/50 ML SYRINGE IV PUSH (23:21)
[2022-07-14] VITALS (15 sets, daily range): BP systolic 108–126; BP diastolic 62–73; PULSE 56–85; RESP 14–18; TEMP 36.2–36.6; O2SAT 100
[2022-07-14] MEDS: SODIUM CHLORIDE 23.4% INJ 77 MEQ in DEXTROSE 10% 1,000 ML 100 MEQ IV CONT ×3 (00:08→20:37)
[2022-07-14 00:09] LABS: Glucose Point of Care 107 mg/dl (65-105)
[2022-07-14 00:09] LABS: Glucose Point of Care 58 mg/dl (65-105)
--- NOTE | 2022-07-14 01:04 | PC.NURSE ---
Addendum entered by Prisca Galvan RN 07/14/22 01:05: Pt also refused integumentary assessment and assessment of pulses. Original Note: Pt refused full assessment, unable to assess abdomen or drains
[2022-07-14 04:43] LABS: Basophils Absolute Auto 0.1 K/mm3 (0.0-0.1); Basophils Percent Auto 0.9 % (0.2-1.2); Eosinophils Percent Auto 0.5 % (0-4.4); Hematocrit 23.8 % (42.0-52.0); Hemoglobin 8.1 g/dL (14.0-18.0); Immature Granulocyte Absolute 0.08 K/mm3 (0.00-0.031); Lymphocytes Absolute Auto 1.27 K/mm3 (0.9-3.2); Lymphocytes Percent Auto 15.7 % (18.3-44.2); Mean Corpuscular Hemoglobin 28.4 pg (26-34); Mean Corpuscular Volume 83.5 fl (80-100); Mean Platelet Volume 10.3 fl (7.4-10.4); Monocytes Absolute Auto 0.3 K/mm3 (0.1-0.6); Monocytes Percent Auto 3.2 % (2.6-8.5); Neutrophils Absolute Auto 6.4 K/mm3 (1.3-6.7); Neutrophils Percent Auto 78.7 % (45.5-73.1); Nucleated Red Blood Cells Perc 0.2 % (0.0-0.2); Platelet Count Result 80 k/mm3 (150-375); Red Blood Count 2.85 M/mm3 (4.6-6.20); Red Cell Distribution Width 19.7 % (11.5-14.5); White Blood Count 8.1 K/mm3 (4.5-10.0)
[2022-07-14 04:48] LABS: INR 2.2; Prothrombin Time 23.4 Seconds (11.1-14.7)
[2022-07-14 04:58] LABS: Albumin Level 1.8 g/dL (3.5-5.1); Anion Gap 7 mmol/L (8-16); Blood Urea Nitrogen 46 mg/dL (9-20); Calcium 6.1 mg/dL (8.4-10.2); Carbon Dioxide 14 mmol/L (22-30); Chloride 122 mmol/L (98-107); Estimated CRCL calculation 20 ml/min; Estimated Glomerular Filt Rate 32; Glucose 91 mg/dL (65-110); Magnesium 1.5 mg/dL (1.6-2.3); Phosphorus 4.8 mg/dL (2.5-4.5); Potassium 4.4 mmol/L (3.4-5.0); Sodium 143 mmol/L (137-145)
[2022-07-14 05:15] LABS: Anisocytosis 2+ (NORMAL); Platelet Estimate Decreased (Adequate)
[2022-07-14 05:16] LABS: Burr Cells 3+ (NORMAL); Schistocytes None Seen (NORMAL); Target Cells 1+ (NORMAL)
[2022-07-14 08:36] LABS: Glucose Point of Care 112 mg/dl (65-105)
[2022-07-14] MEDS: FLUTICASONE/SALMETEROL 115-21 MCG INHALER 1 PUFF 2 PUFF INHALATION (09:39)
[2022-07-14] MEDS: MAGNESIUM SULF 1 GM/D5W 100 ML 1 GM/100 ML BAG IVPB (09:44)
[2022-07-14] MEDS: LIPASE/AMYLASE/PROTEASE 12,000 UNITS CAP 2 CAP PO ×2 (10:01→12:35)
[2022-07-14] MEDS: CALCIUM CARBONATE (TUMS) 500 MG (200 MG ELEMENTAL) PO (10:01)
[2022-07-14] MEDS: ASPIRIN 81 MG ENTERIC TABLET PO (10:02)
[2022-07-14] MEDS: TAMSULOSIN HCL 0.4 MG CAPSULE PO (10:02)
[2022-07-14] MEDS: PANTOPRAZOLE 40 MG TABLET PO (10:02)
[2022-07-14] MEDS: ATORVASTATIN 40 MG TABLET PO (10:02)
[2022-07-14] MEDS: FERROUS SULFATE 324 MG TABLET PO (10:02)
[2022-07-14] MEDS: SODIUM BICARBONATE TAB 650 MG TABLET 1300 MG PO ×2 (10:02→12:35)
[2022-07-14] MEDS: carvediloL 12.5 MG TABLET PO ×2 (10:02→20:37)
--- NOTE | 2022-07-14 12:05 | P.PNNP_ITS ---
Progress Note: A&P Assessment and Plan (1) Renal insufficiency: Code(s): N28.9 - Disorder of kidney and ureter, unspecified Status: Acute Assessment and Plan: * acute versus chronic versus acute on chronic?? * He has small kidneys with increased parenchymal echogenicity on ultrasound * he says that he is had trouble with his kidneys in the past. * Most likely has at least an element of chronic kidney disease. * attempting to get records from [facility], [facility], or [facility] * Will see what evaluation he has had there. * follow repeat labs and UOP (2) Hyperkalemia: Code(s): E87.5 - Hyperkalemia Status: Acute Assessment and Plan: * possibly due to DAVID * however, given history of diabetes, could have a component of Type 4 RTA * Potassium has been good since the . 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 Because he has chronic kidney disease and chronic liver disease, the risk of hypoglycemia is much higher in this person because gluconeogenesis happens in those to organs. * off SSI and getting D5NS * further imaging ordered * review old records when able (4) Acute anemia: Code(s): D64.9 - Anemia, unspecified Status: Acute Assessment and Plan: * etiology unclear * s/p PRBC transfusion * due to CKD?? * may need/benefit from Epogen * will check irons B12 and folate. (5) Insulin dependent type 2 diabetes mellitus: Code(s): E11.9 - Type 2 diabetes mellitus without complications; Z79.4 - [facility] (current) use of insulin Status: Acute Assessment and Plan: * On Accu-Cheks and sliding-scale insulin per hospitalist. Subjective Date/time seen: 07/14/22 12:05 Interval history: delayed is feeling better today. Sugars have been better. No chest pain. He is eating okay. Exam Narrative: General: thin/cachectic AA male in NAD Heart: normal S1 and S2; no rub Lungs: clear to auscultation Abdomen: soft, nondistended; RUQ + LUQ drains noted Extremities: no cyanosis or clubbing; no edema Skin: no rash Objective Data Vital Signs Vital Signs: Vital Signs - 24 hr 07/13/22 16:00 07/13/22 16:00 07/13/22 16:00 Temperature 36.7 C Pulse Rate 61 59 L Respiratory Rate 20 Blood Pressure 103/69 Pulse Oximetry 100 Oxygen Delivery Room Air 07/13/22 20:06 07/13/22 20:06 07/13/22 20:21 Temperature Pulse Rate 63 63 64 Respiratory Rate 16 16 Blood Pressure Pulse Oximetry 98 Oxygen Delivery Room Air 07/13/22 20:00 07/14/22 00:00 07/13/22 20:00 Temperature 36.4 C 36.4 C L Pulse Rate 64 62 Respiratory Rate 18 18 Blood Pressure 117/66 108/73 Pulse Oximetry 100 100 Oxygen Delivery Room Air 07/14/22 00:00 07/14/22 03:52 07/13/22 20:00 Temperature Pulse Rate 64
--- NOTE | 2022-07-14 12:05 | PM.PNNEP ---
Progress Note: A&P Assessment and Plan (1) Renal insufficiency: Code(s): N28.9 - Disorder of kidney and ureter, unspecified Status: Acute Assessment and Plan: acute versus chronic versus acute on chronic?? He has small kidneys with increased parenchymal echogenicity on ultrasound he says that he is had trouble with his kidneys in the past. Most likely has at least an element of chronic kidney disease. attempting to get records from [facility], [facility], or [facility] Will see what evaluation he has had there. follow repeat labs and UOP (2) Hyperkalemia: Code(s): E87.5 - Hyperkalemia Status: Acute Assessment and Plan: possibly due to DAVID however, given history of diabetes, could have a component of Type 4 RTA Potassium has been good since the . 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 Because he has chronic kidney disease and chronic liver disease, the risk of hypoglycemia is much higher in this person because gluconeogenesis happens in those to organs. off SSI and getting D5NS further imaging ordered review old records when able (4) Acute anemia: Code(s): D64.9 - Anemia, unspecified Status: Acute Assessment and Plan: etiology unclear s/p PRBC transfusion due to CKD?? may need/benefit from Epogen will check irons B12 and folate. 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 Subjective Date/time seen: 07/14/22 12:05 Interval history: delayed is feeling better today. Sugars have been better. No chest pain. He is eating okay. Exam Narrative: General: thin/cachectic AA male in NAD Heart: normal S1 and S2; no rub Lungs: clear to auscultation Abdomen: soft, nondistended; RUQ + LUQ drains noted Extremities: no cyanosis or clubbing; no edema Skin: no rash Objective Data Vital Signs Vital Signs: Vital Signs - 24 hr 07/13/22 16:00 07/13/22 16:00 07/13/22 16:00 Temperature 36.7 C Pulse Rate 61 59 L Respiratory Rate 20 Blood Pressure 103/69 Pulse Oximetry 100 Oxygen Delivery Room Air 07/13/22 20:06 07/13/22 20:06 07/13/22 20:21 Temperature Pulse Rate 63 63 64 Respiratory Rate 16 16 Blood Pressure Pulse Oximetry 98 Oxygen Delivery Room Air 07/13/22 20:00 07/14/22 00:00 07/13/22 20:00 Temperature 36.4 C 36.4 C L Pulse Rate 64 62 Respiratory Rate 18 18 Blood Pressure 117/66 108/73 Pulse Oximetry 100 100 Oxygen Delivery Room Air 07/14/22 00:00 07/14/22 03:52 07/13/22 20:00 Temperature Pulse Rate 64 Respiratory Rate Blood Pressure Pulse Oximetry Oxygen Delivery Room Air Room Air 07/14/22 00:00 07/14/22 04:00 07/14/22 06:00 Temperature Pulse Rate 68 67 65 Respiratory Rate Blood Pressure Pulse Oximetry Oxygen Delivery 07/14/22 04:00 07/13/22 22:00 07/14/22 02:00 Temperature 36.5 C Pulse Rate 65 63 64 Respiratory Rate 16 Blood Pressure 118/70 Pulse Oximetry 100 Oxygen Delivery 07/14/22 08:00 Temperature 36.5 C Pulse Rate 67 Respiratory Rate 16 Blood Pressure 126/72 Pulse Oximetry 100 Oxygen Delivery Intake/Output Intake/Output: Intake & Output 07/11/22 07/12/22 07/13/22 07/14/22 23:59 23:59 23:59 23:59 Intake Total 0260 1740 2480 1219.25 Output Total 712 501 685 250 Balance 2220 1115 1795 969.25
[2022-07-14 12:53] LABS: Glucose Point of Care 105 mg/dl (65-105)
--- NOTE | 2022-07-14 13:21 | PM.IMPN ---
Progress Note: A&P Assessment and Plan (1) Hypoglycemia: Code(s): E16.2 - Hypoglycemia, unspecified Status: Acute Assessment and Plan: Patient presented with glucose down to 25. Home insulin regimen held; was on NovoLog 3 units t.i.d. and glargine 10 units daily. A1c 7.1. Anemia may be skewing his A1c. -Glucose dropped <20 treated with dextrose bolus and IVF with dextrose. -consider liver insufficiency. Patient refusing CT scan. -continue to monitor glucose values -encourage oral intake. He refuses NGT/PEG -slowly decrease dextrose fluids (2) Hypothermia: Code(s): T68.XXXA - Hypothermia, initial encounter Status: Acute Assessment and Plan: Temp drops frequently. [place] related to cachexia and loss of body soft tissue. Also related to ambient room temperature. Sepsis seems less likely. BCx pending. Follow. (3) Acute kidney injury superimposed on CKD: Code(s): N17.9 - Acute kidney failure, unspecified; N18.9 - Chronic kidney disease, unspecified Status: Acute Assessment and Plan: Cr 2.7 with BUN 66 on admission. Levels are up and down but mostly in 2.2-2.7 range. Unclear on baseline renal function but Cr 3.3 in January and 2.4 a few days prior to this admission. He has persistent metabolic nongap acidosis which is chronic (he is on oral bicarb on admission). Oral Bicarb advanced. BUN stable at 46 and Cr at 2.5. Nephrology consulted and appreciate their input. Continue IV fluids. (4) Hyperkalemia: Code(s): E87.5 - Hyperkalemia Status: Acute Assessment and Plan: Potassium was at 6.1 felt related to DAVID/CKD. Potassium normal and stable now. Continue to monitor (5) Acute anemia: Code(s): D64.9 - Anemia, unspecified Status: Acute Assessment and Plan: Hgb 8.0 on admission but dropped to 6.7. No evidence of acute blood loss and stool guaiac negative. No evidence of hemolysis. Could be related to IV fluids. He received 1 unit PRBC 07/09 and Hgb climbed to 9.2. Hgb remaining stable in the 8-9 range. 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 No longer on insulin. (7) Hypocalcemia: Code(s): E83.51 - Hypocalcemia Status: Acute Assessment and Plan: Related to low albumin and chronic. Phos mildly elevated. Also Vit D defic from malnutrition. Continue oral replacement. Replace VitD. Check iCa and iPTH. Plan Biliary drain - secured and draining well. Bili okay but elevated alk phos. Followed at [facility]. The old records do not mention biliary drain so suspect it was placed at [place] since January. Suspect underlying liver disease possibly from HepC with acute cholecystitis? Old records from [facility] requested. INR 2.0 to suggest hepatic insufficiency and/or from VitK malabsorption. Refusing CT. Check RUQ US. Ammonia level noted but patient already having diarrhea so no Lactulose. Dementia - alert, mostly oriented Thrombocytopenia - Plt count dropping to 80K now. Was on Heparin (although only received one dose due to patient refusal) so this was stopped. Check anti-plt Ab. Anorexia - related to chronic acidosis? supplements added. Subjective Date/time seen: 07/14/22 13:21 Interval history: 62yo male with CKD, DM and dementia here for hypoglycemia. Patient having more stomach pain today. Having diarrhea usually after eating. He feels he is eating better. Patient refusing food and medications. Also refusing testing at times. Spoke to him today about hospice and comfort measures. All questions answered. Exam Narrative: AF 97.1 119/62 62 18 100% ra Gen - very thin male in NARD lying semi-recumbent in bed Chest - clear BS anteriorly (refuses to sit up) CV - RRR S1/S2. Tele showing no alarms Abd - soft, scaphoid, +BS. Di
[2022-07-14] MEDS: ACETAMINOPHEN 325 MG TABLET 650 MG PO (15:01)
[2022-07-14 17:42] LABS: Glucose Point of Care 104 mg/dl (65-105)
--- NOTE | 2022-07-14 18:00 | PC.NURSE ---
Patient has refused every nursing intervention, labs, and medications since returning from [place]. MD notified about meds and he spoke with the patient himself.
[2022-07-14 20:48] LABS: Glucose Point of Care 115 mg/dl (65-105)
[2022-07-15] VITALS (14 sets, daily range): BP systolic 84–117; BP diastolic 54–67; PULSE 56–78; RESP 14–20; TEMP 36.4–37.1; O2SAT 97–100
[2022-07-15 08:17] LABS: Glucose Point of Care 109 mg/dl (65-105)
[2022-07-15] MEDS: FLUTICASONE/SALMETEROL 115-21 MCG INHALER 1 PUFF 2 PUFF INHALATION ×2 (08:58→20:03)
[2022-07-15] MEDS: SODIUM CHLORIDE 23.4% INJ 77 MEQ in DEXTROSE 10% 1,000 ML 100 MEQ IV CONT (09:29)
[2022-07-15] MEDS: PANTOPRAZOLE 40 MG TABLET PO (09:30)
[2022-07-15] MEDS: LIPASE/AMYLASE/PROTEASE 12,000 UNITS CAP 2 CAP PO ×3 (09:30→17:59)
[2022-07-15] MEDS: TAMSULOSIN HCL 0.4 MG CAPSULE PO (09:30)
[2022-07-15] MEDS: CALCIUM CARBONATE (OSCAL) 500 MG TABLET PO ×2 (09:30→17:59)
[2022-07-15] MEDS: ATORVASTATIN 40 MG TABLET PO (09:30)
[2022-07-15] MEDS: ASPIRIN 81 MG ENTERIC TABLET PO (09:30)
[2022-07-15] MEDS: SODIUM BICARBONATE TAB 650 MG TABLET 1300 MG PO ×3 (09:30→17:58)
[2022-07-15] MEDS: carvediloL 12.5 MG TABLET PO ×2 (09:30→19:56)
[2022-07-15] MEDS: FERROUS SULFATE 324 MG TABLET PO ×2 (09:30→17:59)
[2022-07-15] MEDS: ACETAMINOPHEN 325 MG TABLET 650 MG PO (09:40)
--- NOTE | 2022-07-15 10:13 | PM.PNNEP ---
Progress Note: A&P Assessment and Plan (1) Renal insufficiency: Code(s): N28.9 - Disorder of kidney and ureter, unspecified Status: Acute Assessment and Plan: The patient most likely has chronic kidney disease. Renal ultrasound shows small kidneys with increased parenchymal echogenicity. Creatinine is 2.5 today. Old records seem to be slow in coming. Will check serology and immuno fix. Will also check hepatitis studies as that can influence kidneys as well. (2) Hyperkalemia: Code(s): E87.5 - Hyperkalemia Status: Acute Assessment and Plan: Potassium is okay now. (3) Hypoglycemia: Code(s): E16.2 - Hypoglycemia, unspecified Status: Acute Assessment and Plan: Continues on D10 W. He is not eating at all. (4) Acute anemia: Code(s): D64.9 - Anemia, unspecified Status: Acute Assessment and Plan: Hemoglobin is 8.1. Will check iron levels and stool guaiac. Will begin Epogen. 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 Subjective Date/time seen: 07/15/22 10:13 Interval history: Alert. He hardly ate anything for breakfast. Still on a D10 drip and his sugars are just okay. He mentions that he does have hard candy in his mouth almost all the time at home. Review of Systems Cardiovascular: Cardiovascular: Reports no additional cardiovascular complaints Respiratory: Respiratory: Reports no additional respiratory complaints Gastrointestinal: Gastrointestinal: Reports no additional gastrointestinal complaints Genitourinary: Genitourinary: Reports no additional male genitourinary complaints Exam Narrative: WDWN very skinny male in NAD skin no rash head ncat lungs clear bilaterally cor reg no rub abd BS+ nontender and soft ext no edema. Objective Data Vital Signs Vital Signs: Vital Signs - 24 hr 07/14/22 12:00 07/14/22 16:00 07/14/22 16:00 Temperature 36.2 C L 36.6 C Pulse Rate 62 60 60 Respiratory Rate 18 14 14 Blood Pressure 119/62 124/64 Pulse Oximetry 100 100 100 Oxygen Delivery Room Air 07/14/22 12:00 07/14/22 14:00 07/14/22 16:00 Temperature Pulse Rate 61 62 61 Respiratory Rate Blood Pressure Pulse Oximetry Oxygen Delivery 07/14/22 18:00 07/14/22 20:00 07/14/22 20:37 Temperature 36.4 C Pulse Rate 56 L 60 63 Respiratory Rate 16 Blood Pressure 114/63 Pulse Oximetry 100 Oxygen Delivery 07/14/22 20:00 07/14/22 20:00 07/14/22 22:00 Temperature Pulse Rate 62 63 Respiratory Rate Blood Pressure Pulse Oximetry Oxygen Delivery Room Air 07/15/22 00:00 07/15/22 00:00 07/15/22 00:00 Temperature 36.6 C Pulse Rate 63 61 Respiratory Rate 16 Blood Pressure 117/65 Pulse Oximetry 100 Oxygen Delivery Room Air 07/15/22 02:00 07/15/22 04:00 07/15/22 04:00 Temperature 36.7 C Pulse Rate 61 63 63 Respiratory Rate 14 Blood Pressure 117/65 Pulse Oximetry 100 Oxygen Delivery 07/15/22 04:00 07/15/22 06:00 07/15/22 08:00 Temperature 37.1 C Pulse Rate 61 78 Respiratory Rate 16 Blood Pressure 117/67 Pulse Oximetry 97 Oxygen Delivery Room Air Intake/Output Intake/Output: Intake & Output 07/12/22 07/13/22 07/14/22 07/15/22 23:59 23:59 23:59 23:59 Intake Total 1740 2480 2788.50 1119.25 Output Total 625 685 780 660 Balance 1115 1795 2008.50 459.25 Meds/Results Medications: Active Medications Generic Name Dose Route Start Last Admin Trade Name Hernan PRN Reason Stop Dose Admin Acetaminophen 650 mg 07/08/22 19:55 07/15/22 09:40 Acetaminophen 325 Mg Tablet PO 650 mg Q4H PRN Administration Pain or Fever Al Hydrox/Mg Hydrox/Simethicone 30 ml 07/08/22 19:55 Mag Hydrox/Al Hydrox/Simeth 3
--- NOTE | 2022-07-15 10:16 | PCOTNOTE ---
Patient refused to participate in therapy. Patient reports his stomach hurts but aware he needs to eat and work out - RE: therapy. Patient reports willing to participate tomorrow for OT. Will continue plan of care.
[2022-07-15 10:55] LABS: Hematocrit 25.7 % (42.0-52.0); Hemoglobin 8.7 g/dL (14.0-18.0); Immature Platelet Fraction Pct 3.4 % (0.9-11.2); Mean Corpuscular HGB Conc 33.9 g/dl (32-36); Mean Corpuscular Hemoglobin 27.9 pg (26-34); Mean Corpuscular Volume 82.4 fl (80-100); Mean Platelet Volume 11.4 fl (7.4-10.4); Platelet Count Result 49 k/mm3 (150-375); Red Blood Count 3.12 M/mm3 (4.6-6.20); Red Cell Distribution Width 19.9 % (11.5-14.5); White Blood Count 6.8 K/mm3 (4.5-10.0)
[2022-07-15 11:02] LABS: Immature Reticulocyte Fraction 1.6 % (3.0-15.9); Reticulocyte Hemoglobin Conten 26.5 pg (28.2-35.7); Reticulocyte Percent 0.28 % (0.7-4.3); Reticulocytes Absolute 0.01 B/L (32.2-175.7)
[2022-07-15 11:13] LABS: Alanine Aminotransferase 22 U/L (6-50); Albumin Level 1.8 g/dL (3.5-5.1); Alkaline Phosphatase 590 U/L (38-126); Anion Gap 9 mmol/L (8-16); Aspartate Amino Transferase 52 U/L (17-59); Bilirubin,Total 1.1 mg/dL (0.2-1.3); Blood Urea Nitrogen 42 mg/dL (9-20); Calcium 6.7 mg/dL (8.4-10.2); Carbon Dioxide 13 mmol/L (22-30); Chloride 120 mmol/L (98-107); Creatine Kinase 45 U/L (55-170); Estimated CRCL calculation 18 ml/min; Estimated Glomerular Filt Rate 28; Glucose 113 mg/dL (65-110); Magnesium 1.7 mg/dL (1.6-2.3); Phosphorus 5.6 mg/dL (2.5-4.5); Potassium 4.2 mmol/L (3.4-5.0); Sodium 142 mmol/L (137-145)
[2022-07-15 11:21] LABS: Parathyroid Intact 183.5 pg/mL (7.5-53.5)
[2022-07-15 11:49] LABS: Erythrocyte Sedimentation Rate 51 mm/hr (0-20)
[2022-07-15 12:10] LABS: Glucose Point of Care 131 mg/dl (65-105)
[2022-07-15 12:54] LABS: Hepatitis B Surface Antigen Negative (Negative)
[2022-07-15 13:11] LABS: Hepatitis B Surface Anti Res Negative
[2022-07-15 13:19] LABS: Hepatitis C Virus Antibody Reactive (Negative)
[2022-07-15 13:46] LABS: Iron 23 ug/dL (49-181)
[2022-07-15 13:50] LABS: Band Neutrophils Percent 13 % (0-6); Lymphocytes Absolute Manual 1.97 K/mm3 (1.1-4.5); Metamyelocytes Percent 1 %; Monocytes Absolute Manual 0.06 K/mm3 (0.1-0.90); Monocytes Percent Manual 1 % (3-9); Neutrophils Absolute Manual 4.69 K/mm3 (1.3-6.7); Neutrophils Percent Manual 56 % (46-73); Nucleated Red Blood Cells 1 %; Total Cells Counted 100
[2022-07-15 13:51] LABS: Crenated RBC 2+ (NORMAL); Platelet Estimate Decreased (Adequate); Schistocytes None Seen (NORMAL)
[2022-07-15 13:52] LABS: Spherocytes 1+ (NORMAL); Target Cells 1+ (NORMAL)
[2022-07-15 13:54] LABS: Complement C3 64 mg/dL (88-165)
[2022-07-15 13:57] LABS: Percent Iron Saturation 25 % (20-50)
[2022-07-15 14:01] LABS: IFOB Positive Control Positive; Immunochemical Fecal Occult Bl Positive (N)
--- NOTE | 2022-07-15 14:42 | PM.IMPN ---
Progress Note: A&P Assessment and Plan (1) Hypoglycemia: Code(s): E16.2 - Hypoglycemia, unspecified Status: Acute Assessment and Plan: Patient presented with glucose down to 25. Home insulin regimen held (was on NovoLog 3 units t.i.d. and glargine 10 units daily). A1c 7.1. Anemia may be skewing his A1c. -Glucose dropped <20 treated with dextrose bolus and IVF with dextrose. -continue to monitor glucose values -encourage oral intake. He refuses NGT/PEG -slowly decrease dextrose fluids as he tolerates (2) Hypothermia: Code(s): T68.XXXA - Hypothermia, initial encounter Status: Acute Assessment and Plan: Temp drops frequently. [place] related to cachexia and loss of body subcutaneous soft tissue. Also related to ambient room temperature. Sepsis seems less likely. BCx NGTD. Follow. (3) Acute kidney injury superimposed on CKD: Code(s): N17.9 - Acute kidney failure, unspecified; N18.9 - Chronic kidney disease, unspecified Status: Acute Assessment and Plan: Cr 2.7 with BUN 66 on admission. Levels are up and down but mostly in 2.2-2.8 range. Unclear on baseline renal function but Cr 3.3 in January and 2.4 a few days prior to this admission. He has persistent metabolic nongap acidosis which is chronic (he is on oral bicarb on admission). Oral Bicarb advanced. BUN improving to 42 but Cr up to 2.8 now. Nephrology consulted and appreciate their input. Continue IV fluids. (4) Hyperkalemia: Code(s): E87.5 - Hyperkalemia Status: Acute Assessment and Plan: Potassium was at 6.1 felt related to DAVID/CKD. Potassium normal and stable now. Continue to monitor (5) Acute anemia: Code(s): D64.9 - Anemia, unspecified Status: Acute Assessment and Plan: Hgb 8.0 on admission but dropped to 6.7. No evidence of acute blood loss and stool guaiac negative. No evidence of hemolysis. Could be related to IV fluids. He received 1 unit PRBC 07/09 and Hgb climbed to 9.2. Hgb remaining stable in the 8-9 range. Stool guaiac positive but no evidence of acute GI bleed. 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 No longer on insulin. (7) Hypocalcemia: Code(s): E83.51 - Hypocalcemia Status: Acute Assessment and Plan: Related to low albumin and chronic. Phos mildly elevated. iPTH elevated appropriately. Also Vit D defic from malnutrition. Continue oral calcium replacement. Replace VitD. iCa pending Plan Biliary drain - One of the drains terminated in the 2nd portion of the abdomen. No mention of the 2nd drain; will need to discuss with radiology. secured and draining well. Bili okay but elevated alk phos. Followed at [place]. The old records from [place] do not mention biliary drain so suspect it was placed at [facility] since January. Suspect underlying liver disease possibly from HepC. Old records from [place] requested. INR 2.0 to suggest hepatic insufficiency and/or from VitK malabsorption. Ammonia level noted but patient already having diarrhea so no Lactulose. Diarrhea - having chronic diarrhea. Consider infectious but more likely from his underlying malnutrition. Add Fibercon. Emperic Vanco Dementia - alert, mostly oriented Thrombocytopenia - Plt count dropping to 49K. Was on Heparin (although only received one dose due to patient refusal) so this was stopped. Check anti-plt Ab. Anorexia - related to chronic acidosis? supplements added. Hypoalbuminemia - related to poor liver synthetic function and/or malnutrition. Consider starting albumin. Noted to have anasarca by CT so would need lasix. Spoke with sister and explained the severity of the patient's current condition. All questions answered. Subjective Date/time seen: 07/15/22 14:42 Interval history:
[2022-07-15 17:03] LABS: Glucose Point of Care 165 mg/dl (65-105)
[2022-07-15] MEDS: ERGOCALCIFEROL 50,000 UNITS CAPSULE 50000 UNITS PO (17:58)
[2022-07-15] MEDS: calcium polycarbophiL 625 MG TABLET PO (17:58)
[2022-07-15] MEDS: VANCOMYCIN ORAL 125 MG/2.5 ML SYRUP PO (17:59)
[2022-07-15] MEDS: SODIUM CHLORIDE 23.4% INJ 77 MEQ in DEXTROSE 10% 1,000 ML 90 MEQ IV CONT (20:10)
[2022-07-15 20:16] LABS: Glucose Point of Care 153 mg/dl (65-105)
[2022-07-16] VITALS (20 sets, daily range): BP systolic 68–98; BP diastolic 42–58; PULSE 54–63; RESP 18–20; TEMP 36.3–37.1; O2SAT 98–100
[2022-07-16] MEDS: VANCOMYCIN ORAL 125 MG/2.5 ML SYRUP PO ×3 (00:06→17:31)
[2022-07-16] MEDS: ACETAMINOPHEN 325 MG TABLET 650 MG PO (08:04)
[2022-07-16] MEDS: LIPASE/AMYLASE/PROTEASE 12,000 UNITS CAP 2 CAP PO ×3 (08:05→17:31)
[2022-07-16] MEDS: SODIUM BICARBONATE TAB 650 MG TABLET 1300 MG PO ×3 (08:06→17:31)
[2022-07-16] MEDS: PANTOPRAZOLE 40 MG TABLET PO (08:06)
[2022-07-16] MEDS: FERROUS SULFATE 324 MG TABLET PO ×2 (08:06→17:31)
[2022-07-16] MEDS: TAMSULOSIN HCL 0.4 MG CAPSULE PO (08:06)
[2022-07-16] MEDS: CALCIUM CARBONATE (OSCAL) 500 MG TABLET PO ×2 (08:06→17:31)
[2022-07-16] MEDS: ASPIRIN 81 MG ENTERIC TABLET PO (08:06)
[2022-07-16] MEDS: ATORVASTATIN 40 MG TABLET PO (08:06)
[2022-07-16] MEDS: ERGOCALCIFEROL 50,000 UNITS CAPSULE 50000 UNITS PO (08:07)
[2022-07-16] MEDS: PHENYLEPH/SHARK OIL/MO/PETROL CREAM 26 GM 1 APPLIC RECTAL (08:07)
[2022-07-16] MEDS: calcium polycarbophiL 625 MG TABLET PO ×2 (08:07→17:31)
[2022-07-16 09:01] LABS: Glucose Point of Care 207 mg/dl (65-105)
[2022-07-16] MEDS: FLUTICASONE/SALMETEROL 115-21 MCG INHALER 1 PUFF 2 PUFF INHALATION ×2 (09:23→19:33)
--- NOTE | 2022-07-16 11:28 | PCNFU ---
Nutrition Follow-Up Complete: Severe malnutrition related to loss of appetite, chronic medical condition as evidenced by muscle wasting, fat loss, weight loss >10%/6 months Goal:Adequate PO intake at least 75% meals. Pt is not meeting goal. Continue with current goal Pt current nutrition is Level 5, minced and moist, Nepro shakes BID. Nutrition recommendation: Continue with current plan of care. Last recorded weight is 49.5 kg - wt stable at this time. Bowel Motility: +BM 07/15 Labs Reviewed: Hgb:8.7, HCT:25.7, GFR:28, BUN:42, Cr:2.8, Glu:153, Phos:5.7 Meds Noted: protonix, zofran Skin: no pressure areas noted Additional Notes: Pt continues on a level 5 diet, refusing meals currently, dislikes the Nepro shakes per nursing. May need to consider an appetite stimulant? Continue to encourage po intake as much as possible. Monitoring labs, weights, intakes, supplement tolerance, plan of care Follow up in 3 days
[2022-07-16] MEDS: SODIUM CHLORIDE 23.4% INJ 77 MEQ in DEXTROSE 10% 1,000 ML 90 MEQ IV CONT (11:39)
[2022-07-16 12:26] LABS: Glucose Point of Care 214 mg/dl (65-105)
[2022-07-16] MEDS: SODIUM CHLORIDE 0.9% IV 500 ML 999 ML IV CONT (12:35)
[2022-07-16 12:45] LABS: Basophils Percent Auto 0.4 % (0.2-1.2); Eosinophils Percent Auto 0.4 % (0-4.4); Hematocrit 23.7 % (42.0-52.0); Hemoglobin 8.2 g/dL (14.0-18.0); Immature Granulocyte Absolute 0.05 K/mm3 (0.00-0.031); Immature Granulocyte Percent A 0.9 % (0-0.5); Immature Platelet Fraction Pct 3.9 % (0.9-11.2); Lymphocytes Absolute Auto 1.55 K/mm3 (0.9-3.2); Lymphocytes Percent Auto 27.6 % (18.3-44.2); Mean Corpuscular HGB Conc 34.6 g/dl (32-36); Mean Corpuscular Hemoglobin 28.3 pg (26-34); Mean Corpuscular Volume 81.7 fl (80-100); Mean Platelet Volume 10.2 fl (7.4-10.4); Monocytes Absolute Auto 0.2 K/mm3 (0.1-0.6); Monocytes Percent Auto 4.1 % (2.6-8.5); Neutrophils Absolute Auto 3.8 K/mm3 (1.3-6.7); Neutrophils Percent Auto 66.6 % (45.5-73.1); Red Cell Distribution Width 19.9 % (11.5-14.5); White Blood Count 5.6 K/mm3 (4.5-10.0)
[2022-07-16 12:53] LABS: Albumin Level 1.5 g/dL (3.5-5.1); Anion Gap 7 mmol/L (8-16); Blood Urea Nitrogen 44 mg/dL (9-20); Calcium 6.5 mg/dL (8.4-10.2); Carbon Dioxide 13 mmol/L (22-30); Chloride 118 mmol/L (98-107); Estimated CRCL calculation 16 ml/min; Estimated Glomerular Filt Rate 25; Glucose 219 mg/dL (65-110); Magnesium 1.7 mg/dL (1.6-2.3); Phosphorus 6.8 mg/dL (2.5-4.5); Potassium 3.6 mmol/L (3.4-5.0); Sodium 138 mmol/L (137-145)
[2022-07-16 13:04] LABS: Heparin Induced Platelet Antib Negative (Negative)
[2022-07-16 13:14] LABS: Platelet Count Result 24 k/mm3 (150-375)
[2022-07-16 13:19] LABS: Acanthocytes 3+ (NORMAL); Anisocytosis 1+ (NORMAL); Platelet Estimate Decreased (Adequate); Schistocytes None Seen (NORMAL)
--- NOTE | 2022-07-16 14:09 | PM.PNNEP ---
Progress Note: A&P Assessment and Plan (1) Renal insufficiency: Code(s): N28.9 - Disorder of kidney and ureter, unspecified Status: Acute Assessment and Plan: The patient most likely has chronic kidney disease. Renal ultrasound shows small kidneys with increased parenchymal echogenicity. Creatinine is 3.1 today. hep B surface antigen and antibody are negative. Core antibody is pending. Hep C is positive and HCV RNA is pending C3 is a little low. But he is also malnourished. (2) Hyperkalemia: Code(s): E87.5 - Hyperkalemia Status: Acute Assessment and Plan: Potassium is okay now. (3) Hypoglycemia: Code(s): E16.2 - Hypoglycemia, unspecified Status: Acute Assessment and Plan: Continues on D10 W. He is not eating at all. (4) Acute anemia: Code(s): D64.9 - Anemia, unspecified Status: Acute Assessment and Plan: Hemoglobin is 8.1. Stool guaiac is positive. T sat is 25 Will begin Epogen. 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 Subjective Date/time seen: 07/16/22 14:09 Interval history: Alert. He hardly ate anything for breakfast. he says he wants to nap instead of eat lunch. Still on a D10 drip and his sugars are just okay. Exam Narrative: WDWN very skinny male in NAD skin no rash head ncat lungs clear bilaterally cor reg no rub abd BS+ nontender and soft ext no edema or cyanosis. Objective Data Vital Signs Vital Signs: Vital Signs - 24 hr 07/15/22 16:00 07/15/22 16:00 07/15/22 16:00 Temperature 36.5 C Pulse Rate 57 L 57 L Respiratory Rate 18 Blood Pressure 112/59 L Pulse Oximetry 100 Oxygen Delivery Room Air 07/15/22 18:00 07/15/22 19:56 07/15/22 20:32 Temperature 36.4 C L Pulse Rate 58 L 56 L 56 L Respiratory Rate 20 Blood Pressure 84/54 L Pulse Oximetry 100 Oxygen Delivery 07/15/22 20:00 07/15/22 20:00 07/15/22 22:00 Temperature Pulse Rate 56 L 56 L 56 L Respiratory Rate 20 Blood Pressure Pulse Oximetry 100 Oxygen Delivery Room Air 07/16/22 00:08 07/16/22 00:00 07/16/22 00:00 Temperature 37.1 C Pulse Rate 56 L 56 L 56 L Respiratory Rate 20 20 Blood Pressure 89/58 L Pulse Oximetry 100 100 Oxygen Delivery Room Air 07/16/22 02:00 07/16/22 04:00 07/16/22 04:00 Temperature Pulse Rate 56 L 59 L 56 L Respiratory Rate 20 Blood Pressure Pulse Oximetry 100 Oxygen Delivery Room Air 07/16/22 04:00 07/16/22 06:00 07/16/22 08:12 Temperature Pulse Rate 59 L 63 58 L Respiratory Rate Blood Pressure Pulse Oximetry Oxygen Delivery 07/16/22 08:00 07/16/22 08:00 07/16/22 08:00 Temperature 36.9 C Pulse Rate 57 L 57 L Respiratory Rate 18 Blood Pressure 89/58 L Pulse Oximetry 98 Oxygen Delivery Room Air 07/16/22 10:00 07/16/22 12:00 07/16/22 13:13 Temperature 36.3 C L Pulse Rate 58 L 56 L Respiratory Rate 18 Blood Pressure 68/42 L 98/52 L Pulse Oximetry 99 Oxygen Delivery Intake/Output Intake/Output: Intake & Output 07/13/22 07/14/22 07/15/22 07/16/22 23:59 23:59 23:59 23:59 Intake Total 2480 2788.50 2533.50 1259.25 Output Total 685 780 810 Balance 1795 2008.50 1723.50 1259.25 Meds/Results Medications: Active Medications Generic Name Dose Route Start Last Admin Trade Name Freq PRN Reason Stop Dose Admin Acetaminophen 650 mg 07/08/22 19:55 07/16/22 08:04 Acetaminophen 325 Mg Tablet PO 650 mg Q4H PRN Administration Pain or Fever Al Hydrox/Mg Hydrox/Simethicone 30 ml 07/08/22 19:55 Mag Hydrox/Al Hydrox/Simeth 30 Ml Udc PO QID PRN Dyspepsia Albuterol 2 puff 07/09/22 05:17 Albuterol Sulfate (*Sp) Aerosol 1 Puff INHALATI
[2022-07-16 14:24] LABS: Hepatitis C Virus Antibody Reactive (Negative)
[2022-07-16 16:18] LABS: Glucose Point of Care 234 mg/dl (65-105)
--- NOTE | 2022-07-16 16:45 | PM.IMPN ---
Progress Note: A&P Assessment and Plan (1) Hypotension: Code(s): I95.9 - Hypotension, unspecified Status: Acute Assessment and Plan: BP low today. Coreg held. Better with fluid bolus. [place] related to malnutrition, diarrhea and low albumin and inability to maintain intravascular volume. Give albumin. (2) Thrombocytopenia: Code(s): D69.6 - Thrombocytopenia, unspecified Status: Acute Assessment and Plan: Plt count normal on admission but has been dropping daily. Was on Heparin (although only received one dose due to patient refusal) and this was stopped. Heparin induced platelet Ab negative. Other testing pending. MPV normal. Stop ASA. Etiology unclear. Follow and transfuse as needed. (3) Hypoglycemia: Code(s): E16.2 - Hypoglycemia, unspecified Status: Acute Assessment and Plan: Patient presented with glucose down to 25. Home insulin regimen held (was on NovoLog 3 units t.i.d. and glargine 10 units daily). A1c 7.1. Anemia may be skewing his A1c. -Glucose dropped again <20 treated with dextrose bolus and IVF with dextrose. -encourage oral intake. He refuses NGT/PEG -slowly decrease dextrose fluids as he tolerates and change from D10 1/2NS to D5NS (hypotonic fluid unhelpful) -continue to monitor glucose values (4) Hypothermia: Code(s): T68.XXXA - Hypothermia, initial encounter Status: Acute Assessment and Plan: Temp drops frequently. [place] related to cachexia and loss of body subcutaneous soft tissue. Also related to ambient room temperature. Sepsis seems less likely. BCx NGTD. Maintaining body temperature Follow. (5) Acute kidney injury superimposed on CKD: Code(s): N17.9 - Acute kidney failure, unspecified; N18.9 - Chronic kidney disease, unspecified Status: Acute Assessment and Plan: Cr 2.7 with BUN 66 on admission. Cr dropped to 2.3 but now back up daily to 3.1. Unclear on baseline renal function but Cr 3.3 in January and 2.4 a few days prior to this admission. He has persistent metabolic nongap acidosis despite the oral bicarb. BUN unchanged at 44. Albumin down to 1.5. Nephrology consulted and appreciate their input. Continue IV fluids. (6) Hyperkalemia: Code(s): E87.5 - Hyperkalemia Status: Acute Assessment and Plan: Potassium was at 6.1 felt related to DAVID/CKD. Potassium normal and stable now. Continue to monitor (7) Acute anemia: Code(s): D64.9 - Anemia, unspecified Status: Acute Assessment and Plan: Hgb 8.0 on admission but dropped to 6.7. No evidence of acute blood loss and stool guaiac negative. No evidence of hemolysis. Could be related to IV fluids. He received 1 unit PRBC 07/09 and Hgb climbed to 9.2. Hgb remaining stable in the 8-9 range. Stool guaiac positive but no evidence of acute GI bleed. May have colitis given the diarrhea so oral Vanco added. Monitor HH (8) Insulin dependent type 2 diabetes mellitus: Code(s): E11.9 - Type 2 diabetes mellitus without complications; Z79.4 - [facility] (current) use of insulin Status: Acute Assessment and Plan: As above. No longer on insulin. (9) Hypocalcemia: Code(s): E83.51 - Hypocalcemia Status: Acute Assessment and Plan: Related to low albumin and chronic. Phos mildly elevated. iPTH elevated appropriately. Also Vit D defic from malnutrition. Continue oral calcium replacement. Replace VitD. iCa pending (10) Encounter for biliary drainage tube placement: Code(s): Z46.82 - Encounter for fitting and adjustment of non-vascular catheter Status: Acute Assessment and Plan: Biliary drain - One of the drains terminated in the 2nd portion of the abdomen. Bili okay but elevated alk phos. Followed at [place]. The old records from [place] do not mention biliary drain so suspect it was placed at [place] since January. Suspect underlying liver disease possibly from HepC. CT scan als
[2022-07-16] MEDS: EPOETIN ALFA-EPBX 10,000 UNITS/ML VIAL 10000 UNITS SUB-Q (17:33)
[2022-07-16 20:17] LABS: Glucose Point of Care 258 mg/dl (65-105)
[2022-07-16] MEDS: ALBUMIN HUMAN 25% 25 GM/100 ML 100 ML IVPB (20:46)
[2022-07-16] MEDS: DEXTROSE 5%/0.9% SOD CHL 1,000 ML 80 ML IV CONT (20:48)
[2022-07-16] MEDS: metroNIDAZOLE 250 MG TABLET PO (20:49)
[2022-07-17] VITALS (11 sets, daily range): BP systolic 77–96; BP diastolic 48–60; PULSE 47–57; RESP 18–24; TEMP 36.3–36.9; O2SAT 100
[2022-07-17] MEDS: ALBUMIN HUMAN 25% 25 GM/100 ML 100 ML IVPB ×2 (02:59→12:28)
[2022-07-17 05:06] LABS: Zinc 49 mcg/dL (60-130)
--- NOTE | 2022-07-17 06:53 | PM.PNNEP ---
Progress Note: A&P Assessment and Plan (1) Renal insufficiency: Code(s): N28.9 - Disorder of kidney and ureter, unspecified Status: Acute Assessment and Plan: The patient most likely has chronic kidney disease. Renal ultrasound shows small kidneys with increased parenchymal echogenicity. Creatinine is 3.1 today. hep B surface antigen and antibody are negative. Core antibody is pending. Hep C is positive and HCV RNA is pending C3 is a little low. But he is also malnourished. Overall prognosis very poor. I agree with Dr. Fitch that hospice would be a reasonable option. (2) Hyperkalemia: Code(s): E87.5 - Hyperkalemia Status: Acute Assessment and Plan: Potassium is okay now. (3) Hypoglycemia: Code(s): E16.2 - Hypoglycemia, unspecified Status: Acute Assessment and Plan: Continues on D5 W. He is not eating at all. (4) Acute anemia: Code(s): D64.9 - Anemia, unspecified Status: Acute Assessment and Plan: Hemoglobin is 8.1. Stool guaiac is positive. T sat is 25 On Epogen (5) Insulin dependent type 2 diabetes mellitus: Code(s): E11.9 - Type 2 diabetes mellitus without complications; Z79.4 - senior care (current) use of insulin Status: Acute Assessment and Plan: Management per hospitalists. Subjective Date/time seen: 07/17/22 06:53 Interval history: 07/16 Alert. He hardly ate anything for breakfast. he says he wants to nap instead of eat lunch. Still on a D10 drip and his sugars are just okay. 07/17 Patient is asking for pain pill. I let the nurse know. He denies shortness of breath. He says he ate some dinner last night but can not remember what or how much. Exam Narrative: WDWN very skinny male in NAD skin no rash head ncat lungs clear bilaterally cor reg no rub or gallop abd BS+ nontender and soft ext no edema Objective Data Vital Signs Vital Signs: Vital Signs - 24 hr 07/16/22 08:12 07/16/22 08:00 07/16/22 08:00 Temperature 36.9 C Pulse Rate 58 L 57 L 57 L Respiratory Rate 18 Blood Pressure 89/58 L Pulse Oximetry 98 Oxygen Delivery Oxygen Flow Rate 07/16/22 08:00 07/16/22 10:00 07/16/22 12:00 Temperature 36.3 C L Pulse Rate 58 L 56 L Respiratory Rate 18 Blood Pressure 68/42 L Pulse Oximetry 99 Oxygen Delivery Room Air Oxygen Flow Rate 07/16/22 13:13 07/16/22 16:00 07/16/22 12:00 Temperature 36.5 C Pulse Rate 57 L 57 L Respiratory Rate 18 Blood Pressure 98/52 L 88/47 L Pulse Oximetry 100 Oxygen Delivery Oxygen Flow Rate 07/16/22 16:00 07/16/22 14:00 07/16/22 18:00 Temperature Pulse Rate 56 L 56 L 54 L Respiratory Rate Blood Pressure Pulse Oximetry Oxygen Delivery Oxygen Flow Rate 07/16/22 12:00 07/16/22 09:28 07/16/22 09:29 Temperature Pulse Rate 57 L 60 Respiratory Rate 20 Blood Pressure Pulse Oximetry 100 Oxygen Delivery Room Air Nasal Cannula Oxygen Flow Rate 2 07/16/22 16:00 07/16/22 19:36 07/16/22 20:24 Temperature 37.0 C Pulse Rate 62 55 L Respiratory Rate 18 20 Blood Pressure 85/56 L Pulse Oximetry 100 Oxygen Delivery Room Air Oxygen Flow Rate 07/16/22 20:00 07/16/22 20:00 07/16/22 22:00 Temperature Pulse Rate 55 L 55 L 57 L Respiratory Rate 20 Blood Pressure Pulse Oximetry 100 Oxygen Delivery Room Air Oxygen Flow Rate 07/16/22 23:14 07/17/22 00:00 07/17/22 00:00 Temperature 37.0 C Pulse Rate 57 L 57 L 57 L Respiratory Rate 20 20 Blood Pressure 90/56 L Pulse Oximetry 100 100 Oxygen Delivery Room Air Oxygen Flow Rate 07/17/22 02:00 07/17/22 04:00 07/17/22 04:00 Temperature Pulse Rate 56 L 56 L 56 L Respiratory Rate 20 Blood Pressure Pulse Oximetry 100 Oxygen Delivery Room Air Oxygen Flow Rate 07/17/22 05:47 07/17/22 06:00 Temperature 36.9 C Pulse Rate 57 L 57 L Respira
[2022-07-17] MEDS: FLUTICASONE/SALMETEROL 115-21 MCG INHALER 1 PUFF 2 PUFF INHALATION (08:02)
--- NOTE | 2022-07-17 08:13 | PM.IMPN ---
Progress Note: A&P Assessment and Plan (1) Hypotension: Code(s): I95.9 - Hypotension, unspecified Status: Acute Assessment and Plan: Extremely low, initially patient was going to be transferred to the ICU for pressors, but he refused central line placement and opted instead for hospice care (2) Thrombocytopenia: Code(s): D69.6 - Thrombocytopenia, unspecified Status: Acute Assessment and Plan: Continues to be low, likely secondary to cirrhosis (3) Hypoglycemia: Code(s): E16.2 - Hypoglycemia, unspecified Status: Acute Assessment and Plan: Discontinue dextrose infusion in light of comfort care orders (4) Hypothermia: Code(s): T68.XXXA - Hypothermia, initial encounter Status: Acute Assessment and Plan: Discontinue vital sign checks (5) Acute kidney injury superimposed on CKD: Code(s): N17.9 - Acute kidney failure, unspecified; N18.9 - Chronic kidney disease, unspecified Status: Acute Assessment and Plan: Continues to worsen, discontinue lab work (6) Hyperkalemia: Code(s): E87.5 - Hyperkalemia Status: Acute (7) Acute anemia: Code(s): D64.9 - Anemia, unspecified Status: Acute (8) Insulin dependent type 2 diabetes mellitus: Code(s): E11.9 - Type 2 diabetes mellitus without complications; Z79.4 - director long term care (current) use of insulin Status: Acute (9) Hypocalcemia: Code(s): E83.51 - Hypocalcemia Status: Acute (10) Encounter for biliary drainage tube placement: Code(s): Z46.82 - Encounter for fitting and adjustment of non-vascular catheter Status: Acute (11) Anorexia: Code(s): R63.0 - Anorexia Status: Acute Assessment and Plan: Patient refusing supplemental nutrition (12) Diarrhea: Code(s): R19.7 - Diarrhea, unspecified Status: Acute Plan Dementia - most likely vascular with hx of CVAs. Patient alert, mostly oriented. Hypoalbuminemia - related to poor liver synthetic function and/or malnutrition. as above DVT prophylaxis not indicated GI prophylaxis not indicated Code status DNR/comfort care Subjective Date/time seen: 07/17/22 08:13 Interval history: Patient is complaining of continued diarrhea, pain all over, lightheadedness, weakness. Hospice has been discussed with possible times he was initially admits that he did not want to do this. When he was getting ready to be transferred to the ICU for central line and pressors, he refused central line placement and opted for hospice care instead. Exam Narrative: General: Cachectic, chronically ill-appearing, alert and oriented per baseline HEENT: Atraumatic, normocephalic, mucous membranes moist CV: Regular rate and rhythm, S1, S2 Lungs: Clear to auscultation bilaterally, no rales or crackles noted, no wheezes, good air entry Abdomen: Soft, nontender, nondistended Extremities: Significant muscle wasting noted Psych: Dysthymic, flattened affect Objective Data Vital Signs Vital Signs: Vital Signs - 24 hr 07/16/22 10:00 07/16/22 12:00 07/16/22 13:13 Temperature 97.3 F L Pulse Rate 58 L 56 L Respiratory Rate 18 Blood Pressure 68/42 L 98/52 L Pulse Oximetry 99 Oxygen Delivery Oxygen Flow Rate 07/16/22 16:00 07/16/22 12:00 07/16/22 16:00 Temperature 97.7 F Pulse Rate 57 L 57 L 56 L Respiratory Rate 18 Blood Pressure 88/47 L Pulse Oximetry 100 Oxygen Delivery Oxygen Flow Rate 07/16/22 14:00 07/16/22 18:00 07/16/22 12:00 Temperature Pulse Rate 56 L 54 L Respiratory Rate Blood Pressure Pulse Oximetry Oxygen Delivery Room Air Oxygen Flow Rate 07/16/22 09:28 07/16/22 09:29 07/16/22 16:00 Temperature Pulse Rate 57 L 60 Respiratory Rate 20 Blood Pressure Pulse Oximetry 100 Oxygen Delivery Nasal Cannula Room Air Oxygen Flow Rate 2 07/16/22 19:36 07/16/22 20:24
[2022-07-17] MEDS: ACETAMINOPHEN 325 MG TABLET 650 MG PO ×2 (08:37→12:31)
[2022-07-17] MEDS: LIPASE/AMYLASE/PROTEASE 12,000 UNITS CAP 2 CAP PO ×2 (08:38→12:28)
[2022-07-17] MEDS: metroNIDAZOLE 250 MG TABLET PO ×2 (08:39→12:29)
[2022-07-17] MEDS: CALCIUM CARBONATE (OSCAL) 500 MG TABLET PO ×2 (08:39→17:23)
[2022-07-17] MEDS: SODIUM BICARBONATE TAB 650 MG TABLET 1300 MG PO ×2 (08:39→12:28)
[2022-07-17] MEDS: PANTOPRAZOLE 40 MG TABLET PO (08:40)
[2022-07-17] MEDS: calcium polycarbophiL 625 MG TABLET PO ×2 (08:40→17:23)
[2022-07-17] MEDS: ERGOCALCIFEROL 50,000 UNITS CAPSULE 50000 UNITS PO (08:40)
[2022-07-17] MEDS: FERROUS SULFATE 324 MG TABLET PO (08:40)
[2022-07-17 08:51] LABS: Glucose Point of Care 88 mg/dl (65-105)
[2022-07-17] MEDS: TOLNAFTATE 1% POWDER 45 GM BTL 1 APPLIC TOPICAL (09:39)
[2022-07-17] MEDS: PHENYLEPH/SHARK OIL/MO/PETROL CREAM 26 GM 1 APPLIC RECTAL (09:40)
[2022-07-17] MEDS: LIDOCAINE HCL 2% GEL UROJET 10 ML PKG MUCOUS MEM (12:28)
[2022-07-17 12:51] LABS: Glucose Point of Care 70 mg/dl (65-105)
[2022-07-17 13:22] LABS: Basophils Percent Auto 0.7 % (0.2-1.2); Eosinophils Percent Auto 0.5 % (0-4.4); Hematocrit 24.4 % (42.0-52.0); Hemoglobin 8.2 g/dL (14.0-18.0); Immature Granulocyte Absolute 0.05 K/mm3 (0.00-0.031); Immature Granulocyte Percent A 0.9 % (0-0.5); Immature Platelet Fraction Pct 6.1 % (0.9-11.2); Mean Corpuscular HGB Conc 33.6 g/dl (32-36); Mean Corpuscular Volume 83.3 fl (80-100); Monocytes Absolute Auto 0.3 K/mm3 (0.1-0.6); Monocytes Percent Auto 4.7 % (2.6-8.5); Neutrophils Absolute Auto 3.4 K/mm3 (1.3-6.7); Neutrophils Percent Auto 62.2 % (45.5-73.1); Red Blood Count 2.93 M/mm3 (4.6-6.20); Red Cell Distribution Width 20.3 % (11.5-14.5); White Blood Count 5.5 K/mm3 (4.5-10.0)
[2022-07-17 13:43] LABS: Alanine Aminotransferase 14 U/L (6-50); Albumin Level 1.9 g/dL (3.5-5.1); Alkaline Phosphatase 298 U/L (38-126); Anion Gap 8 mmol/L (8-16); Aspartate Amino Transferase 33 U/L (17-59); Bilirubin,Total 1.1 mg/dL (0.2-1.3); Blood Urea Nitrogen 52 mg/dL (9-20); Calcium 6.9 mg/dL (8.4-10.2); Carbon Dioxide 11 mmol/L (22-30); Chloride 120 mmol/L (98-107); Estimated CRCL calculation 15 ml/min; Estimated Glomerular Filt Rate 23; Glucose 63 mg/dL (65-110); Magnesium 1.8 mg/dL (1.6-2.3); Phosphorus 7.8 mg/dL (2.5-4.5); Sodium 139 mmol/L (137-145)
[2022-07-17 14:03] LABS: Platelet Count Result 17 k/mm3 (150-375)
[2022-07-17 14:21] LABS: Anisocytosis 3+ (NORMAL); Crenated RBC 2+ (NORMAL); Platelet Estimate Decreased (Adequate); Schistocytes 2+ (NORMAL)
[2022-07-17 14:22] LABS: Hypochromasia 2+ (NORMAL); Macrocytosis 2+ (NORMAL); Microcytosis 1+ (NORMAL); Poikilocytosis 2+ (NORMAL)
[2022-07-17 14:56] LABS: UFH SRA Result Interpretation Negative (Negative)
[2022-07-17 17:41] LABS: Ionized Calcium 4.4 mg/dL (4.8-5.6)
--- NOTE | 2022-07-17 20:41 | PC.NURSE ---
PATIENT AT 2014. FAMILY IS AT BEDSIDE. AWAITING PAPERWORK FROM FAMILY.
--- NOTE | 2022-07-17 22:25 | PC.NURSE ---
Attempted to call lab phones are forwarded and was unable to get a hold of anyone to notify of expiration.
--- NOTE | 2022-07-18 00:19 | PC.NURSE ---
MTS released body [facility] notified. Still unable to get a hold of anyone from the lab.
[2022-07-18 04:18] LABS: Hepatitis B Core Ab Total Nonreactive (Nonreactive)
[2022-07-18 07:51] LABS: Kappa\\Lambda Light Chains 1.66 (0.26-1.65); Lambda Light Chain 145.1 mg/L (5.7-26.3)
[2022-07-18 19:00] LABS: Complement Total CH50 56 U/mL (31-60)
[2022-07-19 13:53] LABS: Hepatitis C RNA, Quant PCR 135000 IU/mL
[2022-07-19 18:46] LABS: Alpha-Tocopherol 2.7 mg/L (5.7-19.9); Beta-Gamma Tocopherol <1.0 mg/L (<=4.3); Vitamin A 9 mcg/dL (38-98)
[2022-07-20 23:16] LABS: Platelet Antibody, Direct IgG NEGATIVE (NEGATIVE)
--- NOTE | 2022-07-25 19:07 | PM.DDS ---
Discharge Summary Date and Time Date of : 07/17/22 Time of : 20:15 Provider Pronounced By: Kriss Padilla RN Probable Cause of Probable Cause of : Hypotension Summary Hospital Course: 62-year-old male past medical history biliary drain, insulin-dependent type 2 diabetes, BPH, hyperlipidemia, vitamin-D deficiency, B12 deficiency, history of viral hepatitis, CKD stage 3/4 presents the ED with complaints hypoglycemic episode at shelter.? Patient recently was seen here on 07/04/2022 with hypoglycemic episode and sent home. He states his glargine should be 4 units, however I verified his regimen with shelter records as insulin regimen for diabetes is glargine 10 units daily, Humalog 3 units t.i.d. a.c. He states he gets hypoglycemia after getting glargine and Humalog together.? Otherwise he has got some pancreatic biliary issues with surgery done at [facility], patient is a poor historian.? He currently has a biliary drain, and states he had a cholecystostomy drain which had been removed.? He has follow-up with [facility].? Patient is a very poor historian, his timeline is very skewed.? It appears that he lives in assisted living and currently shelter.? Follows Dr. María Chinchilla.? Patient has very poor p.o. intake, significant weight loss with severe protein calorie malnutrition. In ED:? EMS found patient have blood sugar 24 and patient was given 100 mils of D10 IV.? This is 2nd episode of hypoglycemia today, earlier in the day patient had been given oral glucagon. Patient is found to have hyperkalemia potassium 6.0, creatinine elevated 2.7, glucose 76, fluid and COVID negative.? Patient to be admitted for observation for hypoglycemia. At just after 05:00 rapid response was called on the patient.? Nursing staff had went into check on the patient any was lethargic and cold to touch.? They checked the temperature rectally because they could not obtain I reading with a temporal thermometer and rectal temperature was 92?.? Accu-Chek at that time was less than 20.? Rapid response was called.? When they arrived to the patient's bedside the patient's repeat temperature was actually 95.? The patient was initially minimally responsive eyes open and staring but after 2 amps of dextrose the patient's was talking but still slow to respond.? The patient is frail, elderly, thin body habitus and appears cachectic.? The patient had not received any insulin therapy since admission.? The patient had hypoglycemia when he woke up yesterday as well.? I have asked nursing staff to start checking the patient's Accu-Cheks at 02:00 to try to prevent severe hypoglycemia.? The patient was wrapped in multiple lymph blankets during the rapid response.? His temperature was already going up by the end of the rapid response was 95.2.? The patient had just received blood in IV fluids which may have also helped facilitate his temperature drop.? Repeat Accu-Chek at the end of rapid response was 455. Biliary drain in place and being followed at [place]. Old records suggest hepatitis C. Patient experiencing chronic diarrhea with elevated ammonia level, unable to tolerate lactulose. He was started on empiric oral vancomycin for possible C diff. Thrombocytopenia became severe with platelets dropping below 50,000. Patient had intermittent hypotension as well as hypothermia. Patient had worsening hypotension was given albumin. Ultimately, the patient was requiring ICU admission with central line and pressors and he refused. Therefore, patient was made hospice care and eventually . Additional Data Confirmation of as documented by pronouncing clinician: Pupillary Reflex, Palpable Pulses, Response to Stimuli, Heart Tones and Breath Sounds Name of Provider Notified: May Donis by Chapis Arauz Time Provider Notified: 20:30 Provider Requests Autopsy: No Family Requests Autopsy: No Director Community Organization Notified: Yes Date [facility] No
== END 2022-07-17 20:15 | disposition expired | DRG 424 ==
LOC: ANHED 19:23 → ANH3MEDSUR 19:59 → ANHIMU 23:29 → ANH2MED 07-09 21:49 → ANHIMU 07-12 23:38
PROVIDERS: Family Medicine; Hospitalist; Internal Medicine; Internal Medicine Nephrology; Admitting Provider Student in an Organized Health Care Education/Training Program; Emergency Provider Nurse Practitioner Family; PCP Internal Medicine; Visit Provider Student in an Organized Health Care Education/Training Program
DX: E16.0 Drug-induced hypoglycemia without coma (principal); E43 Unspecified severe protein-calorie malnutrition; I50.42 Chronic combined systolic (congestive) and diastolic (congestive) heart failure; D69.6 Thrombocytopenia, unspecified; N17.9 Acute kidney failure, unspecified; T68.XXXA Hypothermia, initial encounter; I95.9 Hypotension, unspecified; N18.4 Chronic kidney disease, stage 4 (severe); E87.5 Hyperkalemia; K86.89 Other specified diseases of pancreas; T38.3X5A Adverse effect of insulin and oral hypoglycemic [antidiabetic] drugs, initial encounter; Z68.1 Body mass index [BMI] 19.9 or less, adult; E53.8 Deficiency of other specified B group vitamins; E55.9 Vitamin D deficiency, unspecified; E78.5 Hyperlipidemia, unspecified; Z20.822 Contact with and (suspected) exposure to COVID-19; N40.0 Benign prostatic hyperplasia without lower urinary tract symptoms; K21.9 Gastro-esophageal reflux disease without esophagitis; Z82.49 Family history of ischemic heart disease and other diseases of the circulatory system; D63.1 Anemia in chronic kidney disease; I69.911 Memory deficit following unspecified cerebrovascular disease; F01.50 Vascular dementia, unspecified severity, without behavioral disturbance, psychotic disturbance, mood disturbance, and anxiety
CPT/HCPCS: 36415; 36430; 74176; 76775; 80048; 80053; 80069; 81001; 81050; 82140; 82274; 82306; 82330; 82533; 82550; 82570; 82607; 82728; 82746; 82948; 83036; 83540; 83550; 83690; 83735; 83883; 83970; 84100; 84145; 84156; 84300; 84439; 84443; 84446; 84484; 84540; 84590; 84630; 85014; 85018; 85025; 85027; 85046; 85055; 85610; 85652; 86022; 86023; 86038; 86160; 86162; 86334; 86704; 86706; 86803; 86850; 86900; 86901; 86923; 87040; 87045; 87340; 87427; 87522; 87636; 93005; 94640; 96360; 96361; 96365; 96374; 97110; 97161; 97165; 97530; 97535; 99285; A9270; G0378; G0379; J0610; J1644; J1815; J3475; J7030; J7040; J7042; J7050; P9016; P9047; Q5105